=== PATIENT | female | born 1970 | race Caucasian/White ===

== ENCOUNTER 2019-10-28 15:27 | Outpatient (REF) | payer BC, SELFPAY ==
[2019-10-28 16:11] LABS: HCT 46.9 % (36.0-46.0); HGB 15.8 g/dL (12.0-15.5); Mean Corp. HGB Concentration 33.7 g/dL (32.0-36.0); Mean Corpuscular Hemoglobin 32.4 pg (27.0-33.0); Mean Corpuscular Volume 96.3 fL (80-95); Mean Platelet Volume 9.8 fL (8.0-11.0); Platelet Count 181 x1000/uL (130-400); RBC 4.87 m/cumm (4.00-5.20); RBC Distribution Width 12.2 % (11.7-14.6); White Blood Cell Count 5.88 k/cumm (4.4-10.8)
[2019-10-28 16:53] LABS: ALT 320 U/L (14-59); AST 154 U/L (15-37); Albumin 4.3 g/dL (3.4-5.0); Alkaline Phosphatase 74 U/L (46-116); Anion Gap 8.1 mmol/L (3-11); BUN 15 mg/dL (7-18); Bilirubin, Total 0.5 mg/dL (0.2-1.0); CO2 29.9 mmol/L (21.0-32.0); CREATININE 0.86 mg/dL (0.55-1.02); Chloride 100 mmol/L (98-107); Glucose 92 mg/dL (74-106); Potassium 4.2 mmol/L (3.5-5.1); Sodium 138 mmol/L (136-145); TSH (W/Ref FT4) 3.29 uIU/mL (0.36-3.74); Total Protein 8.6 g/dL (6.4-8.2)
== END 2019-10-28 15:47 ==
LOC: NCHCN 15:27
PROVIDERS: PCP Nurse Practitioner Family; Visit Provider Nurse Practitioner Family
DX: I10 Essential (primary) hypertension (principal)
CPT/HCPCS: 80053; 85027; 83036; 84443

== ENCOUNTER 2019-11-09 08:25 | Outpatient (CLI) | payer BC, SELFPAY ==
[2019-11-10 18:36] LABS: COVID-19 RT-PCR Result NEGATIVE (Negative)
== END 2019-11-09 08:45 ==
PROVIDERS: PCP Nurse Practitioner Family; Visit Provider Surgery
DX: Z11.59 Encounter for screening for other viral diseases (principal)
CPT/HCPCS: U0003

== ENCOUNTER 2019-11-12 06:04 | Day surgery (SDC) | payer BC, SELFPAY ==
[2019-11-12 06:22] VITALS: BP 129/82; PULSE 56; RESP 18; TEMP 36.6; O2SAT 97
[2019-11-12] MEDS: Lactated Ringers 1,000 ML 80 ML IV (06:44)
--- NOTE | 2019-11-12 07:18 | HPE_ITS ---
Date of service: 11/12/19 Time of Service: :18 Assessment and Plan Assessment and plan (1) Encounter for screening colonoscopy: Status: Acute Assessment and plan: I advised colonoscopy. The procedure was described including the risks of perforation with need for surgery or bleeding. Patient agrees to proceed. History of Present Illness Narrative: 48 y/o female with history of environmental allergies presents for her first screening colonoscopy screening. She denies any changes in her health since last seen. She reports that she had cancelled her original procedure date due to having a cold. She states that she was adopted and does not know her family history. She denies any changes in bowel habits including bloody or black tarry stools, abdominal pain, diarrhea or constipation. She denies constitutional symptoms. Denies use of marijuana or any other recreational or illegal drugs. 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 Non-alcoholic fatty liver disease Prediabetes Sleep disorder sleep apnea Surgical History Abdominal hysterectomy 2005 Biopsy, Soft Tissue (08/08/17) skin of right hand, dermatofibroma Tonsillectomy and adenoidectomy 1974 Social History Smoking/Tobacco Use Status: Never Alcohol Intake: current Alcohol Intake frequency: a few times a week Alcohol ty pe: beer and wine Drug use: Never Substance use type: does not use Do you feel safe at home: Yes Do you feel safe in your relationship?: Yes Meds Home Medications and Allergies Home Medications Medication Instructions Recorded Confirmed Type cetirizine [Zyrtec] 10 mg PO DAILY 08/01/17 11/12/19 History fluticasone propionate [Flonase 9.9 ml NS BID 08/01/17 11/12/19 History Allergy Relief] bisacodyl 5 mg tablet,delayed 5 mg PO ONCE #4 tab 06/04/19 11/12/19 Rx release polyethylene glycol 3350 17 238 g PO ONCE #238 gm 06/04/19 11/12/19 Rx gram/dose oral powder lisinopril 10 mg tablet 10 mg PO DAILY 10/29/19 11/12/19 History Allergies Allergy/AdvReac Type Severity Reaction Status Date / Time Penicillins Allergy Unknown Wheezing Verified 11/11/19 14:58 Exam Narrative Exam Narrative: Alert Lungs CTA Heart RRR Abdomen SNT Results Last Vital Signs Temp 97.9 F 11/12/19 06:22 Pulse 56 L 11/12/19 06:22 Resp 18 11/12/19 06:22 BP 129/82 11/12/19 06:22 Pulse Ox 97 11/12/19 06:22 COVID-19 Screening In the past 14 days, have you traveled outside of [place] or [place]?: NO
--- NOTE | 2019-11-12 07:29 | W.PM.DSUDISC ---
Discharge Plan Disposition Patient Disposition: HOME Condition: Good Discharge Details Reason For Visit: Colonoscopy Attending Provider: Darlene Nails Primary Care Provider: Adeel Del Valle Home Meds and New Rx's Prescriptions: Continued fluticasone propionate [Flonase Allergy Relief] 9.9 ML spray,suspension 9.9 ml NS BID RF: 0 Zyrtec 10 MG capsule 10 mg PO DAILY RF: 0 lisinopril 10 mg tablet 10 mg PO DAILY RF: 0 Discontinued polyethylene glycol 3350 17 gram/dose powder 238 g PO ONCE Qty: 238 RF: 0 bisacodyl [Dulcolax (bisacodyl)] 5 mg tablet,delayed release (DR/EC) 5 mg PO ONCE Qty: 4 RF: 0 Discharge Instructions Additional Instructions: Findings: A rectal polyp was removed. Follow up: My office will contact you with biopsy results. It is expected you will need a colonoscopy in 5 years. Please call if you develop: fevers >101.5 Nausea or Vomiting Abdominal pain that is not transient Bleeding DAY SURGERY UNIT POST COLONOSCOPY INSTRUCTIONS 1. Because there will be medication in your system for the next 24 hours, you may feel a little sleepy. Your coordination will be affected. Therefore: a. Do not drive or operate dangerous equipment for 24 hours. b. Do not drink alcohol beverages for 24 hours (not even beer). c. Plan to go home and rest for the day. 2. Generally there are no restrictions on your activity after a day or so has gone by, but you may feel a bit fatigued for a few days. 3 After you arrive home you may have a light meal and return to a normal diet as you can tolerate it without feeling sick to your stomach. 4. After surgery, you may feel pain or discomfort. This should be only transient, but if it persists please contact your doctor. 5. If there are any questions regarding the findings of your procedure, please feel free to contact your doctor. 6. If you are unable to contact your doctor with a problem, contact the hospital at [phone]. 7. Continue all your regular medications unless directed otherwise. I understand the above instructions and have no questions. Signature of Patient or Responsible Adult Escort Date/Time Name of Responsible Adult Escort Signature of Nurse Date/Time Activity:: Activity as Tolerated Diet:: As Tolerated Discharge Orders Discharge Orders: Discharge Order (Routine); Ordered 11/12/19 Ordered By: Darlene Nails DS: Diagnosis Discharge Diagnosis (1) Rectal polyp: Status: Acute (2) S/P colonoscopy with polypectomy: Status: Acute
--- NOTE | 2019-11-12 07:30 | W.COLOREPORT ---
Date of service: 11/12/19 Colonoscopy Report Date of procedure: 11/12/19 Pre-op diagnosis general: Screening Post-op diagnosis procedure note: other (Rectal polyp, mild diverticulosis) Procedure: Colonoscopy with polypectomy Surgeon: Darlene Nails Anesthesia proc note operative: MAC Disposition: same day Indications: This patient presents for her first screening colonoscopy. She is asymptomatic and has no known family history of colon cancer although she is adopted. Procedure Description: The patient was placed in the left Parker position. Propofol was titrated to sedation. Digital rectal examination revealed no abnormalities. The scope was advanced to the cecum without difficulty. The ileocecal valve and appendiceal orifice were clearly identified. The prep was good. The scope was slowly withdrawn over the course of greater than 6 minutes with no abnormalities seen in the ascending, transverse, descending, sigmoid colon with the exception of mild diverticulosis. A less than 1cm polyp was removed from the rectum with snare polypectomy. A hemostatic clip was applied as a precaution. The remainder of the rectum was normal including on retroflexed view. The patient tolerated the procedure well and was stable to recovery. It is anticipated a follow up colonoscopy will be needed in 5 years pending biopsy results.
--- NOTE | 2019-11-12 08:01 | BOWEL_PTH ---
PATIENT: Raquel Austin LOC: [facility] U#:[id number] AGE/SX: 49/F ROOM: RE11/12/[address]: Darlene Nails MD : [id number] BED: DIS: 11/12/2019 SPEC #: [id number] RECD: 11/12/19 11:50 STATUS: SANTOS REQ #: [id number] KIMBERLY: 11/12/19 08:[address]: Darlene Nails DEPT: Surgical Specimen RECD BY: Ashlee Cloud ENTERED: 11/12/19 11:51 SP TYPE: Bowel OTHR DR: Adeel Del Valle Tissues: 1 - BIOPSY BOWEL Procedures: GROSS AND MICRO LEVEL 4 Comments: [id number]
[2019-11-12 08:32] VITALS: BP 107/62; PULSE 48; RESP 16; TEMP 36.4; O2SAT 96
== END 2019-11-12 09:08 | disposition home or self-care (01) ==
PROVIDERS: PCP Nurse Practitioner Family; Visit Provider Surgery
PROC: 0DJD8ZZ Inspection of Lower Intestinal Tract, Via Natural or Artificial Opening Endoscopic (ICD-10-PCS; CPT 45378; principal; 2019-11-12 07:30)
DX: Z12.11 Encounter for screening for malignant neoplasm of colon (principal); D12.8 Benign neoplasm of rectum; K57.30 Diverticulosis of large intestine without perforation or abscess without bleeding
CPT/HCPCS: 45385; 88305; NC; J2001

== ENCOUNTER 2019-11-17 11:48 | Day surgery (SDC) | payer BC, SELFPAY ==
[2019-11-17] VITALS (9 sets, daily range): BP systolic 149–186; BP diastolic 88–108; PULSE 52–60; RESP 11–20; TEMP 36.3–36.8; O2SAT 95–99
--- NOTE | 2019-11-17 12:15 | W.PREOPHP ---
Date of service: 11/17/19 Assessment and Plan Assessment and plan (1) Arthritis of carpometacarpal (CMC) joint of right thumb: Status: Acute Assessment and plan: Trapezial arthroplasty right hand. Details of surgery were discussed with patient as well as risks and pertinent anatomy. All questions were answered. History of Present Illness History of Present Illness Chief Complaint: Right thumb pain Narrative: Raquel today for right thumb trapezial arthroplasty. She has been dealing with right thumb pain for many years, but recently has become more of an issue with her daily activities. She has had previous left thumb trapezial arthroplasty for similar symptoms of the left hand. She has tried anti-inflammatories which do help with her right thumb pain, but did not take it daily. She has also tried bracing which has not significantly helped her right hand at this point. But she is failed conservative treatment, and has done really well from the left trapezial arthroplasty, Dr. Hansen does offer a right of the thumb. She is anxious to proceed. Pertinent Surgical Information Raquel states that she had prediabetes with her last A1c done on 10/28/2019 which was 6.0. Patient denies history of hypertension, CVA, SD, angina, asthma, COPD, renal disorders, bleeding disorders, diabetes, immune or thyroid disorders. No complications from anesthesia. Review of Systems Constitutional Constitutional: Denies fever(s) ENT Ears, Nose, Mouth, and Throat: Denies dizziness and Denies sore throat Cardiovascular Cardiovascular: Denies chest pain, Denies palpitations and Denies dyspnea Respiratory Respiratory: Denies cough and Denies dyspnea Gastrointestinal Gastrointestinal: Denies abdominal pain, Denies melena, Denies hematochezia, Denies diarrhea, Denies nausea and Denies vomiting Genitourinary Genitourinary: Denies hematuria and Denies dysuria Neurologic Neurologic: Denies dizziness Endocrine Endocrine: Denies palpitations [facility] Medical History Allergic rhinitis Anxiety associated with depression Chronic fatigue Elevated LFTs 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 Non-alcoholic fatty liver disease Prediabetes Sleep disorder sleep apnea Surgical History Abdominal hysterectomy 2005 Biopsy, Soft Tissue (08/08/17) skin of right hand, dermatofibroma S/P colonoscopy with polypectomy (Acute) 11/12/19 Tonsillectomy and adenoidectomy 1975 Social History Smoking/Tobacco Use Status: Never Alcohol Intake: current Alcohol Intake frequency: a few times a week Alcohol type: beer and wine Drug use: Never Substance use type: does not use Current gender identity: female Do you feel safe at home: Yes Do you feel safe in your relationship?: Yes Meds Home Medications and Allergies Home Medications Medication Instructions Recorded Confirmed Type Zyrtec 10 mg PO DAILY 08/01/17 11/17/19 History fluticasone propionate [Flonase 9.9 ml NS BID 08/01/17 11/17/19 History Allergy Relief] lisinopril 10 mg tablet 10 mg PO DAILY 10/29/19 11/17/19 History Allergies Allergy/AdvReac Type Severity Reaction Status Date / Time Penicillins Allergy Unknown Wheezing Verified 11/11/19 14:58 Exam Const General: cooperative and no acute distress Orientation: alert and awake [facility] Head: normocephalic and atraumatic General nose exam: no nasal discharge Eyes Conjunctivae: conjunctivae normal Sclera: sclerae normal Resp Effort & Inspection: normal respiratory effort Auscultation: clear to auscultation bilaterally and no wheezes Cardio Rate: regular rate Rhythm: regular rhythm Heart Sounds: S1 normal, S2 normal and no murmurs GI Palpation: soft, no hepatosplenomegaly and nontender Auscultation: normal bowel sounds Results Last Vital Signs Temp 98.2 F 11/17/19 11:54 Pulse 52 L 11/17/19 11:54 Resp 17 11/17/19 11:54 BP 149/96 H 11/17/19 11:54 Pulse Ox 97 11/17/19 11:54
[2019-11-17] MEDS: Lactated Ringers 1,000 ML 80 ML IV (12:26)
--- NOTE | 2019-11-17 12:45 | DI.RAD_ITS ---
EXAM: XR HAND RT LIMITED CLINICAL HISTORY: ARTHRITIS CMC JOINT RIGHT THUMB. TECHNIQUE: 2D and realtime digital imaging was performed. COMPARISON: CR RIGHT WRIST COMPLETE from 11/19/2017 FINDINGS: Fluoroscopy was provided in the OR. A single hard copy image shows a needle projecting at the 1st C MC joint. Please see procedure note for details. Fluoro Time: 1 second RADIATION DOSE DELIVERED:
--- NOTE | 2019-11-17 13:25 | PDOC.DSDIS_ITS ---
Discharge Plan Disposition Patient Disposition: HOME Condition: Good Discharge Details Reason For Visit: Right Thumb Arthritis Attending Provider: Riley Hansen Primary Care Provider: Adeel Del Valle Home Meds and New Rx's Prescriptions: New acetaminophen 500 mg tablet 1,000 mg PO Q8H PRN (Reason: pain) Qty: 60 RF: 3 ibuprofen 600 mg tablet 600 mg PO TID PRNQty: 60 RF: 3 oxycodone 5 mg tablet 5 mg PO Q6H PRN PRNQty: 12 RF: 0 Continued fluticasone propionate [Flonase Allergy Relief] 9.9 ML spray,suspension 9.9 ml NS BID RF: 0 Zyrtec 10 MG capsule 10 mg PO DAILY RF: 0 lisinopril 10 mg tablet 10 mg PO DAILY RF: 0 Discharge Instructions Additional Instructions: Activity: You should keep the hand/thumb elevated as much as possible for the first few days. You may use the other fingers as tolerated but avoid trying to do too much too soon. You may perform light activities with the splint in place. Dressing/Cast: Your splint should stay in place at all times. Do NOT get it wet. You may loosen the ROGER wrap if you feel it is too tight and then rewrap more loosely. Medications: - You should take Tylenol and Ibuprofen for baseline pain control. - You have Oxycodone for breakthrough pain. - You may apply ice over the thumb. Follow-up: 10-14 days Referrals: Riley Hansen MD [ [facility] STAFF PHYSICIAN] - Equipment/Supplies: Splint Activity:: Elevate Remove Dressings/Wound Care:: Do Not Remove Shower/Bathe:: Cover Diet:: As Tolerated Discharge Orders Discharge Orders: Discharge Order (Routine); Ordered 11/17/19 Ordered By: Riley Hansen DS: Diagnosis Discharge Diagnosis (1) Arthritis of carpometacarpal (CMC) joint of right thumb: Status: Acute
[2019-11-17] MEDS: ceFAZolin 2 GM/50 ML BAG IVPB (13:29)
[2019-11-17] MEDS: fentaNYL 100 MCG/2 ML VIAL IVP ×2 (14:50→14:58)
[2019-11-17] MEDS: Acetaminophen 325 MG TAB 650 MG PO (15:16)
[2019-11-17] MEDS: oxyCODONE 5 MG TAB PO ×2 (15:17→16:33)
--- NOTE | 2019-11-18 06:48 | ROE_ITS ---
Date of service: 11/17/19 Time of Service: 14:48 Operative Note Operative Note DATE OF PROCEDURE: 11/18/19 PRE-OP DIAGNOSIS: Right Thumb CMC Arthritis POST-OP DIAGNOSIS: same PROCEDURE: Right trapezial resection arthroplasty with suture suspensionplasty SURGEON: Riley Hansen STEMMING MACHINE OPERATOR: Halle Lovelace ANESTHESIA: GETA ESTIMATED BLOOD LOSS: 5 PATHOLOGY: none sent TOURNIQUET TIME: 34 COMPLICATIONS: None Patient was transported to: PACU Patient's condition: stable Indications: Raquel is a 67 year old female who has had symptoms of thumb CMC arthritis with pain and decreased mobility. Nonoperative treatment options had been trialed. Given their failure, I offered operative intervention. She had a previous resection arthroplasty performed on the left side with good success about 10 years ago. I reviewed the technical details. I reviewed the risk of the procedure to include bleeding, infection, pain, stiffness, instability, subsidence, damage to neighboring arteries, damage to the superficial radial nerve, and weakness. Despite these risks, the patient elected to proceed. Findings: There is notable arthrosis between the trapezium and the first metacarpal. Procedure Description: Raquel was greeted in the preoperative holding area. Name and surgical site were confirmed. The history and physical was completed. The consent was reviewed the patient and signed. She was taken back to the operating room. The patient was placed and monitored anesthesia care. The right was then prepped with ChloraPrep and draped in a standard fashion after a nonsterile tourniquet was placed high up onto the arm. Prophylactic antibiotics in the form of cefazolin were administered. A timeout was performed for safe surgery. The surgical site was drawn on the skin overlying the dorsal radial border of the wrist. The planned surgical field was anesthetized with 0.25% bupivacaine with epinephrine. The limb was exsanguinated and the tourniquet was inflated where it stayed for 34 minutes. A 3 cm incision was made longitudinally over the radial wrist from the level of the radial styloid to just past the base of the first metacarpal. The skin was incised only. The deep tissue and subcutaneous fat was dissected with a tenotomy scissors trying to protect branches of the superficial radial nerve. Any branches that were identified were retracted out of the way. The first compartment extensor tendons were then identified. The interval between APL and EPB was identified. This interval was then opened. The deep branch of the radial artery was identified and released from its close approximation to the carpus using blunt dissection with tenotomy scissors. The base of the first metacarpal was palpated. A needle was placed into the joint between the first metacarpal and the trapezium. A single x-ray was used to confirm appropriate positioning. The capsule of the trapezium was then incised. The radial border of the bone was identified. Soft tissues around trapezium were dissected bluntly to allow relaxation of vital arterial structures traversing the trapezium. A [place] was placed into the joint space surrounding the trapezium, this was used as a joystick. Using a [place] blade the capsule was elevated off the trapezium in a subperiosteal fashion. Once it appeared to have all the capsular attachments released, the trapezium was then removed using a rongeur. To facilitate this removal, I split the trapezium in half with an osteotome. The wound was inspected to make sure all portions of the trapezium were removed. X-ray was used to confirm appropriate removal of all bony fragments. The wound was then thoroughly irrigated. Using a 2-0 FiberWire then performed a suture suspension plasty. This was done by incorporating capsule and attachments of the APL at the base of the first metacarpal and creating a sling connected to the deep flexor carpi radialis tendon seen traversing deep within the wound towards the second metacarpal. This was done twice to create a crossing network of 2-0 suture. This was then tied overlying the base of the first metacarpal making sure not to over tighten and hourglass the tendons. This provided support to the first metacarpal to prevent any excessive subsidence. The tourniquet was then released. There is no significant bleeding. The capsule of the trapezium was then reapproximated with a 2-0 Vicryl. The skin was closed with 4-0 Monocryl. The hand was dressed with 4 x 4's, web roll, thumb spica splint. All counts are correct. Patient was transferred back to PACU in a stable condition.
== END 2019-11-17 16:54 | disposition home or self-care (01) ==
PROVIDERS: PCP Nurse Practitioner Family; Visit Provider Student in an Organized Health Care Education/Training Program
PROC: (CPT 25447; principal; 2019-11-17 14:45)
DX: M18.11 Unilateral primary osteoarthritis of first carpometacarpal joint, right hand (principal); M79.641 Pain in right hand
CPT/HCPCS: 25447; 76000; NC; 73120; J0690; J1100; J1885; J2001; J2250; J2405; J3010; L3650

== ENCOUNTER 2019-11-25 11:23 | Outpatient (REF) | payer BC, SELFPAY ==
[2019-11-25 15:09] LABS: HCT 43.3 % (36.0-46.0); HGB 14.9 g/dL (12.0-15.5); Mean Corp. HGB Concentration 34.4 g/dL (32.0-36.0); Mean Corpuscular Hemoglobin 33.3 pg (27.0-33.0); Mean Corpuscular Volume 96.7 fL (80-95); Mean Platelet Volume 9.8 fL (8.0-11.0); Platelet Count 193 x1000/uL (130-400); RBC 4.48 m/cumm (4.00-5.20); RBC Distribution Width 12.3 % (11.7-14.6); White Blood Cell Count 5.96 k/cumm (4.4-10.8)
[2019-11-25 15:12] LABS: INR 0.9 (0.9-1.1); PTT Activated 22.1 sec (21.0-31.4); Prothrombin Time 9.4 sec (9.3-11.0)
[2019-11-25 15:20] LABS: Anion Gap 6.1 mmol/L (3-11); BUN 12 mg/dL (7-18); CO2 29.9 mmol/L (21.0-32.0); CREATININE 0.81 mg/dL (0.55-1.02); Calculated LDL 141 mg/dL (<100); Chloride 104 mmol/L (98-107); Cholesterol 211 mg/dL (<200); Glucose 121 mg/dL (74-106); HDL Cholesterol 39 mg/dL (40-60); Potassium 3.9 mmol/L (3.5-5.1); Sodium 140 mmol/L (136-145); Triglyceride 159 mg/dL (<150)
[2019-11-25 15:21] LABS: Troponin I < 0.05 ng/mL (<0.06)
[2019-11-25 15:50] LABS: D-Dimer 422 ng/mlFEU (<500)
== END 2019-11-25 11:43 ==
LOC: NCHCN 11:23
PROVIDERS: PCP Nurse Practitioner Family; Visit Provider Nurse Practitioner Family
DX: Z00.00 Encounter for general adult medical examination without abnormal findings (principal); R79.89 Other specified abnormal findings of blood chemistry; K76.0 Fatty (change of) liver, not elsewhere classified; R07.89 Other chest pain; I10 Essential (primary) hypertension; R53.83 Other fatigue
CPT/HCPCS: 80048; 80061; 85027; 84484; 85379; 85610; 85730

== ENCOUNTER 2020-03-03 09:19 | Outpatient (REF) | payer BC, SELFPAY ==
[2020-03-03 21:05] LABS: COMMENT (LAB VIEW ONLY) 22.73 mg/dL; Microalb ug/mg Crea 14.1 ug/mg Cr
[2020-03-03 21:07] LABS: COMMENT (LAB VIEW ONLY) 23.26 mg/dL; PROTEIN < 6.0 mg/dL
== END 2020-03-03 09:39 ==
LOC: NCHCN 09:19
PROVIDERS: PCP Nurse Practitioner Family; Visit Provider Nurse Practitioner Family
DX: I10 Essential (primary) hypertension (principal); R73.03 Prediabetes
CPT/HCPCS: 82043; 82565; 82570; 84156

== ENCOUNTER 2020-03-07 00:40 | Outpatient (CLI) | payer BC, SELFPAY ==
--- NOTE | 2020-03-07 12:45 | DI.MAMMO_ITS ---
EXAM: MAMMO SCREENING CLINICAL HISTORY: SCREENING,Z12.39 TECHNIQUE: Mammograms were interpreted according to the usual protocol including computer analysis w LATTO CAD system, tomosynthesis and C-view imaging. COMPARISON: FINDINGS: The breasts are of moderate density with fairly symmetrical distribution of fibroglandular tissue. N o dominant mass or clumped microcalcification is identified in either breast. The current examinatio n is compared with previous examination of July 2017 and there is question of increased prominenc e of a focal area of asymmetric density or architectural distortion projected in the central superior portion of the right breast on MLO view only. Additional mammographic views of this area are reques edvin to include MLO spot compression view of right breast. IMPRESSION: Additional mammographic views of the right breast requested as described above. Breast ultrasound ma y be indicated as well depending on the results of the additional mammographic views. BI-RADS Category 0 - Assessment Incomplete: Need additional imaging evaluation Breast Density - Category B - Scattered areas of fibroglandular density
== END 2020-03-07 01:00 ==
PROVIDERS: PCP Nurse Practitioner Family; Visit Provider Nurse Practitioner Family
DX: Z12.31 Encounter for screening mammogram for malignant neoplasm of breast (principal); R92.8 Other abnormal and inconclusive findings on diagnostic imaging of breast; R92.2 Inconclusive mammogram
CPT/HCPCS: 77063; 77067

== ENCOUNTER 2020-03-14 01:17 | Outpatient (CLI) | payer BC, SELFPAY ==
--- NOTE | 2020-03-14 | DI.MAMMO_ITS ---
EXAM: MG MAMMO SCREEN CALL BACK UNI and U/S breast RT limited CLINICAL HISTORY: F/U MAMMO,? INCREASED PROMINENCE ASYMMETRIC DENSITY RT BREAST MLO VIEW. TECHNIQUE: Craniocaudal and mediolateral oblique Full Field Digital Mammography views of the right b reast with Computer Aided Diagnosis followed by Tomosynthesis and right breast ultrasound. COMPARISON: Prior examinations available for comparison. FINDINGS: Mammography/Tomosynthesis: Masses/Architectural Distortion: None seen. Microcalcifictions: No suspicious pleomorphic-type are seen. Skin Thickening/Nipple Retraction: None. Right breast US: Echotexture: Normal appearance of the glandular tissue. Shadowing: No suspicious foci. Cyst: None. Solid lesions: None seen. Ductal dilation: None. IMPRESSION: 1. No evidence of malignancy is noted. 2. Follow-up mammogram in 6 months is recommended for re-evaluation. 3. The findings were discussed with the patient on the date of the examination. BI-RADS Category 3 - 6 month - Probably Benign Finding: Recommend follow-up mammography in 6 months Breast Density - Category B - Scattered areas of fibroglandular density A negative radiographic report should not delay biopsy if a dominant or clinically suspicious mass is present. Up to ten percent of cancers are not identified on mammography. A negative report may reinforce clinical impression. Adenosis and dense breasts may obscure an underlying neoplasm. False positive reports average 6 to 10%. Patient will receive a letter notifying them of these results.
== END 2020-03-14 01:37 ==
PROVIDERS: PCP Nurse Practitioner Family; Visit Provider Nurse Practitioner Family
DX: Z12.39 Encounter for other screening for malignant neoplasm of breast (principal); R92.8 Other abnormal and inconclusive findings on diagnostic imaging of breast
CPT/HCPCS: 76642; 77063; 77067

== ENCOUNTER 2020-03-17 09:52 | Outpatient (REF) | payer BC, SELFPAY ==
[2020-03-17 20:17] LABS: ALT 232 U/L (14-59); AST 108 U/L (15-37); Albumin 3.9 g/dL (3.4-5.0); Alkaline Phosphatase 74 U/L (46-116); BUN 18 mg/dL (7-18); Bilirubin, Total 0.4 mg/dL (0.2-1.0); CREATININE 0.97 mg/dL (0.55-1.02); Calcium 9.2 mg/dL (8.5-10.1); Chloride 99 mmol/L (98-107); Glucose 171 mg/dL (74-106); Magnesium 2.3 mg/dL (1.8-2.4); Potassium 3.5 mmol/L (3.5-5.1); Sodium 136 mmol/L (136-145); Total Protein 7.9 g/dL (6.4-8.2)
== END 2020-03-17 10:12 ==
LOC: NCHCN 09:52
PROVIDERS: PCP Nurse Practitioner Family; Visit Provider Nurse Practitioner Family
DX: I10 Essential (primary) hypertension (principal)
CPT/HCPCS: 80053; 83735

== ENCOUNTER 2020-05-01 15:19 | Outpatient (REF) | payer BC, SELFPAY ==
[2020-05-04 19:15] LABS: Patient Race White; SARS-CoV-2 Specimen Source Nasal
[2020-05-04 21:27] LABS: SARS-CoV-2 RNA Detected (Undetected)
== END 2020-05-01 15:39 ==
LOC: NCHCN 15:19
PROVIDERS: PCP Nurse Practitioner Family; Visit Provider Nurse Practitioner Family
DX: R51.9 Headache, unspecified (principal)
CPT/HCPCS: U0003

== ENCOUNTER 2020-05-13 14:25 | Emergency (ER) | payer BC, SELFPAY ==
[2020-05-13] VITALS (11 sets, daily range): BP systolic 105–173; BP diastolic 66–106; PULSE 53–72; RESP 10–27; TEMP 36.3; O2SAT 93–100
--- NOTE | 2020-05-13 14:30 | RT.EKG_ITS ---
APPROVED REPORT Exam: Resting ECG Patient Location: E HR:60 bpm ECG Measurements Heart Rate 60 AXIS VA 154 P 30 QRSd 106 QRS -23 QT 406 T 45 QTc 405 Conclusion Sinus rhythm. No st elevation
--- NOTE | 2020-05-13 15:00 | DI.RAD_ITS ---
EXAM: XR PORTABLE CHEST AP CLINICAL HISTORY: pain/sob, +covid TECHNIQUE: 2D digital imaging was performed. COMPARISON: No exams were available for comparison FINDINGS: LUNGS: Clear. No pleural abnormality seen. HEART: Normal. MEDIASTINUM: Normal. Bones: Unremarkable IMPRESSION: No acute pulmonary findings. DATA REPOSITORY: RADIATION DOSE DELIVERED:
--- NOTE | 2020-05-13 15:17 | W.ED.GENAD ---
Discharge Plan Disposition Patient Disposition: HOME Condition: Stable Discharge Details Clinical Impression: Rash, Chest pain Primary Care Provider: Adeel Del Valle ED Provider: Eder Mascorro Home Meds and New Rx's Prescriptions: Continued chlorthalidone 25 mg tablet 25 mg PO DAILY RF: 0 lisinopril 10 mg tablet 20 mg PO DAILY RF: 0 acetaminophen 500 mg tablet 1,000 mg PO Q8H PRN (Reason: pain) Qty: 60 RF: 3 Contrave 8-90 mg tablet extended release 8 tab PO BID RF: 0 Discharge Instructions Instructions: Chest Pain (ED), Acute Rash (ED) Additional Instructions: Blood tests today included cardiac enzymes which were normal. Your liver function tests were elevated but improved from prior. Your creatinine was slightly elevated from baseline. This is a measure of kidney function and should be repeated. Please contact your primary care physician to arrange follow-up. Call on Friday. Be sure to discuss lab results. Ideally you should have an outpatient cardiac stress test performed as soon as possible. If rash persist, please follow-up with [facility]. Return to the ER for any worsening or new concerning symptoms. Referrals: Adeel Del Valle, FACSIMILE MACHINE OPERATOR [Primary Care Provider] - Discharge Data Discharge Date/Time-TO BE ENTERED AT DEPARTURE: 05/13/20 19:00 Medical Decision Making <ELIN Pal - Last Filed: 05/14/20 08:10> 49-year-old female, history of hypertension, positive Covid test on May 01, presents for irritating skin rash that began on her feet, now on her legs and arms. The rash is scant, diffuse, erythematous, blanchable, slightly papular in nature. No petechiae, no tenderness, no skin weeping. There are a couple areas of excoriation. She states that she took [id number] Benadryl and did a soak to the areas with the rash and her symptoms are far improved however the rash has not gone away completely. Subsequently she reports that since her diagnosis of Covid she has had some left-sided chest pain, shortness of breath, pain going to her left shoulder that has been intermittent in nature. Denies any of that this very moment. Clinically I see no obvious signs of cellulitis, systemic reaction, etc. Very well could be a viral exanthem versus some sort of dermatitis. I believe treating the symptomatically is perfectly reasonable. Given her diagnosis of Covid, chest pain, shortness of breath, I do believe further evaluation and work-up of chest pain is indicated. She is agreeable to having an IV established, EKG, chest x-ray, laboratory values including troponin now, D-dimer, and repeat troponin in 3 hours. Blood pressure trending downward to 106/74. Pulse now 57. Laboratory values reveal a normal white count of 7.66. Blood sample hemolyzed, no other results at the time of signout. At time of signout to Dr. Mascorro, awaiting laboratory redraw for hemolyzed sample. Patient is agreeable to awaiting a 3-hour troponin. Medical Records Medical records reviewed: Yes I reviewed the patient's medical records. Imaging Data Radiologic Study: Attestation: I personally reviewed and interpreted this imaging study as follows: Imaging: X-Ray My impression: Chest x-ray read by me as negative, awaiting official radiology report. Lab Data Lab results reviewed: Yes I reviewed the patient's lab results. Lab results narrative: Laboratory Tests Range/Units 05/13/20 15:00 WBC (4.4-10.8) 10^3/uL 7.66 RBC (3.93-5.22) 10^6/uL 4.70 Hgb (11.2-15.7) g/dL 15.4 Hct (36.0-46.0) % 45.9 MCV (80-95) fL 97.7 H MCH (27.0-33.0) pg 32.8 MCHC (32.0-36.0) % 33.6 RDW (11.7-14.6) % 12.1 Plt Count (130-400) 10^3/uL 214 MPV (8.0-11.0) fL 9.3 Immature Gran % 0.3 Neutrophils % 56.5 Lymphocytes % 29.5 Monocytes % 8.6 Eosinophils % 4.6 Basophils % 0.5 Nucleated RBC % % 0 Absolute Neutrophils (1.2-6.7) 10^3/uL 4.33 Absolute Lymphocytes (1.2-3.4) 10^3/uL 2.26 Absolute Monocytes (0.1-0.8) 10^3/uL 0.66 Absolute Eosinophils (0.0-0.7) 10^3/uL 0.35 Absolute Basophils (0.0-0.2) 10^3/uL 0.04 ECG Data Attestation: I personally reviewed and interpreted this ECG (s) as follows: Interpretation: Please see official report by Dr. Lugo. Sinus rhythm, ventricular rate 60. No STEMI. <Eder Mascorro MD - Last Filed: 05/13/20 19:54> Care signed out by ELIN Leon with plan to follow-up on labs including D-dimer and troponin. Initial labs reviewed and D-dimer negative. Initial troponin negative. Plan as previously determined for antihistamine to treat rash. I will refer her to primary care and dermatology should rash worsen. I recommended she followup with PCP for stress test. Usual customary discharge instructions were provided and she was encouraged to return for any worsening or new concerning symptoms. HPI <ELIN Pal - Last Filed: 05/14/20 08:10> General Mode of arrival: ambulatory. Date/Time Provider Initiated Documentation: 05/13/20 14:41. Limitations to Documentation: no limitations. Information obtained by: patient. HPI Narrative: This is a 49-year-old female who reports history of hypertension, positive Covid test on May 01. She traveled to [place] for approximately 1 week, returned on April 24, subsequently developed URI-like symptoms and then tested positive for Covid. She states that she has been quarantining since that time. Overall she has more energy and is feeling slightly better than she did from her initial diagnosis. She states that over the past few days she has noticed a irritating, slightly itching, rash on the top of her bilateral feet that has spread up to her legs and onto her arms. She soaks the rash and took Benadryl which seemed to have helped with the irritating symptoms. She denies any difficulty speaking, swallowing, lip or tongue swelling. She denies any obvious environmental exposures. No one at home has similar symptoms. She denies headache, fever, neck pain, back pain, abdominal pain, nausea, vomiting, change in bowel or bladder function. She states that since her diagnosis of Covid she has had some intermittent chest pain, shortness of breath, and at times the pain does radiate to her left shoulder. She denies any shortness of breath or pain currently. Related Data Home Medications Medication Instructions Recorded Confirmed acetaminophen 1,000 mg PO Q8H PRN #60 tab 11/17/19 05/13/20 lisinopril 10 mg tablet 20 mg PO DAILY tab 12/02/19 05/13/20 chlorthalidone 25 mg tablet 25 mg PO DAILY 03/09/20 05/13/20 Contrave 8 tab PO BID 05/13/20 05/13/20 Previous Rx's Medication Instructions Recorded acetaminophen 1,000 mg PO Q8H PRN #60 tab 11/17/19 Allergies Allergy/AdvReac Type Severity Reaction Status Date / Time Penicillins Allergy Unknown Wheezing Verified 05/13/20 14:42 General Stated Complaint: Chest Pain BAUTISTA: 2 Review of Systems <ELIN Pal - Last Filed: 05/14/20 08:10> Constitutional Constitutional: Denies fatigue, Denies fever(s) and Denies headache(s) ENT Ears, Nose, Mouth, and Throat: Denies headache(s), Denies lip swelling, Denies neck pain, Denies sore throat, Denies throat swelling and Denies tongue swelling Cardiovascular Cardiovascular: Reports chest pain and Reports dyspnea Respiratory Respiratory: Denies cough, Reports dyspnea and Denies wheezing Gastrointestinal Gastrointestinal: Denies abdominal pain, Denies nausea and Denies vomiting Genitourinary Genitourinary: Denies dysuria Musculoskeletal Musculoskeletal: Denies back pain, Denies neck pain, Denies numbness and Denies tingling Integumentary/Breasts Skin/Breast: Reports rash Neurologic Neurologic: Denies headache(s), Denies numbness and Denies tingling Endocrine Endocrine: Denies fatigue Allergic/Immunologic Allergic/Immunologic: Denies urticaria, Denies lip swelling, Denies throat swelling, Denies tongue swelling and Denies wheezing PFSH <ELIN Pal - Last Filed: 05/14/20 08:10> Medical History Allergic rhinitis Anxiety associated with depression Chronic fatigue Elevated LFTs 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 Non-alcoholic fatty liver disease Prediabetes Sleep disorder sleep apnea Surgical History Abdominal hysterectomy 2005 Arthritis of carpometacarpal (CMC) joint of right thumb Status post trapezial arthroplasty: 11/17/2019 Biopsy, Soft Tissue (08/08/17) skin of right hand, dermatofibroma S/P colonoscopy with polypectomy 11/12/19 Tonsillectomy and adenoidectomy 1975 Social History Smoking/Tobacco Use Status: Never Smoking risk assessment performed?: Yes Alcohol Intake: former Drug use: Never Substance use type: does not use Current gender identity: female Do you feel safe at home: Yes Do you feel safe in your relationship?: Yes Exam <ELIN Pal - Last Filed: 05/14/20 08:10> Const General: cooperative, healthy appearing, comfortable and no acute distress Orientation: alert, awake and oriented x3 HENMT Head: normal to inspection, normocephalic and atraumatic General nose exam: external nose normal Face and sinus: normal facial exam Mouth: moist mucous membranes Throat: posterior oropharynx normal Eyes General: appearance normal, both eyes and all related structures Alignment and Position: alignment normal Periorbital: periorbital findings normal Eyelids: eyelids normal Conjunctivae: conjunctivae normal Sclera: sclerae normal Cornea: corneas normal Pupils: PERRL EOM: EOM intact bilaterally Direct ophthalmoscopy: normal light reflex Neck Neck: normal visual inspection, full ROM, no lymphadenopathy, no meningeal signs, trachea midline, supple and nontender Chest Chest: normal inspection of the chest Resp Effort & Inspection: normal respiratory effort and able to speak in complete sentences Auscultation: clear to auscultation bilaterally Cardio Rate: regular rate Rhythm: regular rhythm GI Inspection: normal to inspection Palpation: soft and nontender Back/Spine/Pelvis Back: No back tenderness Skin Rashes: rashes noted maculopapular rash bilateral arm Neuro General: patient alert, patient awake, moves all extremities and no focal motor deficits Cognition: normal cognition Speech: speech normal Gait: normal gait Motor: muscle tone normal throughout Sensory Exam: no sensory deficits noted Extrem General: normal to inspection, full ROM, capillary refill normal, no pedal edema and no calf tenderness Psych Appearance: grossly normal Mental Status: mental status grossly normal Course <ELIN Pal - Last Filed: 05/14/20 08:10> Vital Signs Vital signs: Vital Signs Temperature 36.3 C L 05/13/20 14:32 Pulse 72 05/13/20 14:32 Respiratory Rate 16 05/13/20 14:32 Blood Pressure 173/106 H 05/13/20 14:32 Pulse Oximetry 100 05/13/20 14:32 Temperature 36.3 C L 05/13/20 14:32 Temperature Source Tympanic 05/13/20 14:32 Pulse 72 05/13/20 14:32 Respiratory Rate 16 05/13/20 14:50 Respiratory Effort Non-Labored 05/13/20 14:50 Respiratory Depth Normal 05/13/20 14:50 Respiratory Pattern Normal 05/13/20 14:50 Blood Pressure 173/106 H 05/13/20 14:32 Blood Pressure Position Supine 05/13/20 14:32 Pulse Oximetry 100 05/13/20 14:32 Oxygen Delivery Method Room Air 05/13/20 14:32 Oxygen Flow Rate 0 05/13/20 14:32 Pain Level 2 05/13/20 14:32 Sign Out <ELIN Pal - Last Filed: 05/14/20 08:10> Sign Out Data: Sign Out Comment: At time of signout lab is redrawn due to hemolyzed samples. All that has returned is the complete blood count, EKG, chest x-ray. Patient presents for rash to her extremities however she has been having what she describes as chest pain or pressure, shortness of breath, radiates to her left shoulder. Positive Covid test on May 01. Last updated by Margarito Leon PA at 05/13/20 15:55
[2020-05-13 15:35] LABS: Abs Immature Grans 0.02 10^3/uL (0.0-0.06); Absolute Basophil Count 0.04 10^3/uL (0.0-0.2); Absolute Eosinophil Count 0.35 10^3/uL (0.0-0.7); Absolute Lymphocyte Count 2.26 10^3/uL (1.2-3.4); Absolute Monocyte Count 0.66 10^3/uL (0.1-0.8); Absolute Neutrophil Count 4.33 10^3/uL (1.2-6.7); Basophils % 0.5; Eosinophils % 4.6; HCT 45.9 % (36.0-46.0); HGB 15.4 g/dL (11.2-15.7); Immature Grans % 0.3; Lymphocytes % 29.5; MCH 32.8 pg (27.0-33.0); MCHC 33.6 % (32.0-36.0); MCV 97.7 fL (80-95); MPV 9.3 fL (8.0-11.0); Monocytes % 8.6; Neutrophils % 56.5; Nucleated RBC 0 %; Platelet Count 214 10^3/uL (130-400); RDW 12.1 % (11.7-14.6); RDW-SD 43.8 fL; WBC 7.66 10^3/uL (4.4-10.8)
[2020-05-13 15:50] LABS: PTT Activated 25.8 sec (21.0-27.5); Prothrombin Time 10.3 sec (9.3-11.0)
--- NOTE | 2020-05-13 15:58 | DI.VRAD_ITS ---
PROCEDURE INFORMATION: Exam: XR Chest, 1 View Exam date and time: 05/13/2020 3:42 PM Age: 49 years old Clinical indication: Chest pain and other: Pain/sob +covid; Type not specified TECHNIQUE: Imaging protocol: XR of the chest Views: 1 view. Other technique: Portable exam. COMPARISON: No relevant prior studies available. FINDINGS: Lungs: Unremarkable. No consolidation. Pleural space: Unremarkable. No pleural effusion. No pneumothorax. Heart/Mediastinum: Unremarkable. No cardiomegaly. Bones/joints: Unremarkable. IMPRESSION: No evidence for acute abnormality in the chest. Dictated and Authenticated by: Elba Parker MD. Ordering:CLARY Pimentel MD
[2020-05-13 16:23] LABS: ALT 149 U/L (14-59); AST 67 U/L (15-37); Albumin 3.9 g/dL (3.4-5.0); Alkaline Phosphatase 55 U/L (46-116); BUN 16 mg/dL (7-18); Bilirubin, Total 0.4 mg/dL (0.2-1.0); CREATININE 1.13 mg/dL (0.55-1.02); Chloride 98 mmol/L (98-107); Estimated GFR 50.76 (mL/min/1.73m2); Glucose 111 mg/dL (74-106); Magnesium 2.1 mg/dL (1.8-2.4); NT-proBNP 24 pg/mL (<300); Potassium 3.9 mmol/L (3.5-5.1); Sodium 133 mmol/L (136-145); Total Protein 8.2 g/dL (6.4-8.2)
[2020-05-13 16:26] LABS: Troponin I < 0.05 ng/mL (<0.06)
[2020-05-13 16:27] LABS: Calcium 9.1 mg/dL (8.5-10.1)
[2020-05-13 17:35] LABS: D-Dimer 395 ng/mlFEU (<500)
--- NOTE | 2020-05-13 18:07 | NUR.NOTE ---
Nursing Note: Patient reports no discomfort. Provided lab results to patient, water. No other needs at this time, awaiting repeat Troponin level.
[2020-05-13 18:27] LABS: Troponin I < 0.05 ng/mL (<0.06)
== END 2020-05-13 19:00 | disposition home or self-care (01) ==
PROVIDERS: Physician Assistant; Emergency Provider Student in an Organized Health Care Education/Training Program; PCP Nurse Practitioner Family
DX: U07.1 COVID-19 (principal); R07.89 Other chest pain; R21 Rash and other nonspecific skin eruption; R06.02 Shortness of breath; I10 Essential (primary) hypertension
CPT/HCPCS: 80053; 93005; 71045; 83735; 83880; 84484; 85025; 85379; 85610; 85730; 93010

== ENCOUNTER 2020-10-05 01:41 | Outpatient (CLI) | payer BC, SELFPAY ==
--- NOTE | 2020-10-05 | DI.MAMMO_ITS ---
EXAM: MG MAMMO DIAGNOSTIC UNI CLINICAL HISTORY: F/U ABNL MAMMO, 6 MO F/U,R92.8. TECHNIQUE: Unilateral spot mammographic images were obtained with 3D [employer] and util izing computer aided detection (CAD). COMPARISON: Prior mammograms dating back to 2007, the most recent being February 2020. Breast ultr asound February 2020 was reviewed FINDINGS: Previously described area of possibly some asymmetry appears less concerning on the present study. B enign-appearing lymph node upper outer quadrant of the right breast is unchanged. No new spiculated masses nor malignant-appearing microcalcification groups. No new architectural distortion or skin thickening-traction IMPRESSION: No radiographic evidence of malignancy in the right breast. Appropriate follow-up is keep this patie nt yearly mammogram schedule, this implying the next bilateral mammogram would be in March 2021, wi th earlier imaging if a self detected breast changes noted. BI-RADS Category 2 - Benign Findings Breast Density - Category B - Scattered areas of fibroglandular density Breast density Category C or D implies that the patient has dense breast tissue. Dense breast tissue can make it harder to find cancer on a mammogram. Dense breast tissue is also associated with an incr eased risk of breast cancer. This information about the result of the mammogram report was provided to the patient to raise their awareness. Use this report when you speak with the patient about their risks for breast cancer, which includes their family history. At that time, you may recommend additional screening tests (Ultrasoun d or MRI) as these tests may add significant information. A negative radiographic report should not delay biopsy if a dominant or clinically suspicious mass is present. Up to ten percent of cancers are not identified on mammography. A negative report may reinforce clinical impression. Adenosis and dense breasts may obscure an underlying neoplasm. False positive reports average 6 to 10%. Patient will receive a letter notifying them of these results.
== END 2020-10-05 02:01 ==
PROVIDERS: PCP Nurse Practitioner Family; Visit Provider Nurse Practitioner Family
DX: Z12.31 Encounter for screening mammogram for malignant neoplasm of breast (principal); R92.8 Other abnormal and inconclusive findings on diagnostic imaging of breast; N64.59 Other signs and symptoms in breast
CPT/HCPCS: 77061; 77065; G0279

== ENCOUNTER 2021-08-17 02:04 | Outpatient (CLI) | payer BC, SELFPAY ==
--- NOTE | 2021-08-17 09:12 | DI.RAD_ITS ---
Exam(s) XR SHOULDER RT COMPLETE 2+V EXAM: XR SHOULDER RT COMPLETE 2+V CLINICAL HISTORY: PAIN RT SHOULDER M25.511. TECHNIQUE: 2D digital imaging was performed. COMPARISON: CR RIGHT SHOULDER COMPLETE from 11/19/2017 FINDINGS: There is no evidence of fracture nor dislocation. No abnormal soft tissue calcifications. No joint space narrowing. No osteophytes. Bone density normal. No osseous lesions. Ipsilateral clavicle un remarkable in IMPRESSION: No significant radiograph findings in the right shoulder. No significant radiographic change compare d to October 2017. If clinically indicated follow-up MRI can be performed DATA REPOSITORY: RADIATION DOSE DELIVERED:
== END 2021-08-17 02:24 ==
PROVIDERS: PCP Nurse Practitioner Family; Visit Provider Naturopath
DX: M25.511 Pain in right shoulder (principal)
CPT/HCPCS: 73030

== ENCOUNTER 2021-08-22 00:46 | Outpatient (CLI) | payer BC, SELFPAY ==
--- NOTE | 2021-08-22 08:00 | DI.MAMMO_ITS ---
Exam(s) MAMMO SCREENING EXAM: MAMMO SCREENING CLINICAL HISTORY: SCREENING TECHNIQUE: Mammograms were interpreted according to the usual protocol including computer analysis w [employer] CAD system, tomosynthesis and C-view imaging. COMPARISON: FINDINGS: The breasts are of moderate density with fairly symmetrical distribution of fibroglandular tissue. N o dominant mass or clumped microcalcification is identified in either breast. The current examinatio n is compared with previous examinations including February 2020 and there has been no gross interva l change in appearance in comparison with the prior studies. IMPRESSION: No specific evidence of malignancy at this time. Routine screening examinations are suggested at yea rly intervals in this age group according to the ACS ACR guidelines. BI-RADS Category 1 - Negative Breast Density - Category B - Scattered areas of fibroglandular density
== END 2021-08-22 01:06 ==
PROVIDERS: PCP Nurse Practitioner Family; Visit Provider Naturopath
DX: Z12.31 Encounter for screening mammogram for malignant neoplasm of breast (principal)
CPT/HCPCS: 77063; 77067

== ENCOUNTER 2021-09-19 16:08 | Outpatient (REF) | payer BC, SELFPAY ==
[2021-09-21 12:06] LABS: COVID-19 RT-PCR UVMMC Result Negative (Negative)
== END 2021-09-19 16:09 | disposition home or self-care (01) ==
LOC: LBN 16:08
PROVIDERS: PCP Nurse Practitioner Family; Visit Provider Physician Assistant Medical
DX: Z20.822 Contact with and (suspected) exposure to COVID-19 (principal); R09.89 Other specified symptoms and signs involving the circulatory and respiratory systems
CPT/HCPCS: U0003

== ENCOUNTER → 2021-12-10 01:37 | Outpatient (CLI) | payer BC, SELFPAY ==
--- NOTE | 2021-12-10 07:00 | DI.MRI_ITS ---
Exam(s) MR UPPER JOINT RT WO EXAM: MR UPPER JOINT RT WO CLINICAL HISTORY: Persistent pain, ARTHRITIS RT AC JOINT, BICEPS TENDINITIS, BURSITIS. TECHNIQUE: Multiplanar multisequence MRI was performed. COMPARISON: CR XR SHOULDER RT COMPLETE 2+V from 08/17/2021 FINDINGS: BONES: There is no fracture or contusion pattern. JOINTS: Moderately severe degenerative changes are seen at the acromioclavicular joint. The glenohum eral joint is normal. TENDONS: Supraspinatus: There is a full-thickness tear of the supraspinatus tendon anteriorly at its insertion site. There is a gap of approximately 1 cm. Infraspinatus: Unremarkable. Subscapularis: There is tendinosis of the subscapularis tendon. Teres [place]: Unremarkable. Biceps and [place]: Unremarkable. MUSCLES: Unremarkable. GLENOID LABRUM: Unremarkable on this noncontrast examination. SOFT TISSUES: Unremarkable. LIGAMENTS: Unremarkable. OTHER: There is a small amount of fluid in the subacromial subdeltoid bursa. IMPRESSION: 1. Full-thickness tear of the supraspinatus tendon anteriorly at its insertion site. 2. Subscapularis tendinosis. 3. Moderately severe degenerative changes of the acromioclavicular joint. 4. Mild subacromial subdeltoid bursitis. DATA REPOSITORY:
== END ==
PROVIDERS: PCP Naturopath; Visit Provider Student in an Organized Health Care Education/Training Program
DX: M25.511 Pain in right shoulder; M19.011 Primary osteoarthritis, right shoulder; M75.101 Unspecified rotator cuff tear or rupture of right shoulder, not specified as traumatic; M75.81 Other shoulder lesions, right shoulder; M75.21 Bicipital tendinitis, right shoulder; M75.51 Bursitis of right shoulder
CPT/HCPCS: 73221

== ENCOUNTER 2022-02-05 01:26 | Outpatient (CLI) | payer BC, SELFPAY ==
[2022-02-05 12:26] LABS: Source Nasal/Nares
[2022-02-05 14:35] LABS: COVID-19 PCR Negative (Negative)
== END 2022-02-05 01:27 | disposition home or self-care (01) ==
PROVIDERS: PCP Naturopath; Visit Provider Student in an Organized Health Care Education/Training Program
DX: Z20.822 Contact with and (suspected) exposure to COVID-19 (principal); Z01.818 Encounter for other preprocedural examination
CPT/HCPCS: 87635

== ENCOUNTER 2022-02-07 05:49 | Day surgery (SDC) | payer BC, SELFPAY ==
[2022-02-07] VITALS (9 sets, daily range): BP systolic 89–124; BP diastolic 54–79; PULSE 48–52; RESP 14–21; TEMP 35.8–36.5; O2SAT 93–100; BMI 32.9
--- NOTE | 2022-02-07 06:37 | W.ANESPRE ---
General Info Date of Service Date Performed: 02/07/22 Height: 5 ft 6 in Weight: 92.5 kg Body Mass Index (BMI): 32.9 Surgical Procedure: Operation Date: 02/07/22 07:40 Proposed Procedure Side Surgeon p Shoulder Rotator Cuff Arthroscopic w/Extensive Debridement, Biceps Tenodesis, Subacromial Decompression, Distal Clavicle Excision Right Baldomero Joiner MD Meds Allergies and Home Medications Allergies Allergy/AdvReac Type Severity Reaction Status Date / Time Penicillins Allergy Unknown Wheezing Verified 02/07/22 06:19 Home Medication Medication Instructions Recorded lisinopril 10 mg tablet 20 mg PO DAILY 12/02/19 chlorthalidone 25 mg tablet 25 mg PO DAILY 03/09/20 naltrexone 8 mg-bupropion 90 mg 8 tab PO BID 05/13/20 tablet,extended release (Contrave) naproxen 500 mg tablet 500 mg PO BID 11/20/21 Current Visit Medications: Current Medications Generic Name Dose Route Start Last Admin Trade Name Freq PRN Reason Stop Dose Admin Ringer's Solution 1,000 mls @ 30 mls/hr 02/07/22 06:00 IV 03/08/22 23:59 INFUSION JERROD Cefazolin Sodium/Dextrose 2 gm in 50 mls @ 100 mls/hr 02/07/22 06:00 Ancef Duplex IVPB 02/07/22 16:00 PREOP JERROD IV Miscellaneous Supplies 1 each 02/07/22 06:00 Iv Access IV 03/08/22 23:59 DIRECTED JERROD Sodium Chloride 0 ml 02/07/22 06:00 Normal Saline Flush 10 Ml Syr IV 03/08/22 23:59 PRN PRN Sodium Chloride 0 ml 02/07/22 06:00 Normal Saline 10 Ml Vial IJ 03/08/22 23:59 DIRECTED PRN Sterile Water 0 ml 02/07/22 06:00 Water,Injection,Sterile 10 Ml Vial IJ 03/08/22 23:59 DIRECTED PRN PFSH Active Problems Active Problems: Problem Status Onset Code Arthritis of carpometacarpal (CMC) joint of right thumb M18.11 Hypertension I10 Encounter for screening colonoscopy Z12.11 Rectal polyp K62.1 S/P colonoscopy with polypectomy Z98.890 Bursitis of right shoulder M75.51 Biceps tendinitis of right shoulder M75.21 Arthritis of right acromioclavicular joint M19.011 Rotator cuff tear, right M75.101 Medical History Medical History Allergic rhinitis Anxiety associated with depression Chronic fatigue Elevated LFTs 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 Non-alcoholic fatty liver disease Prediabetes Sleep disorder sleep apnea Medical History Comments:: Adopted Surgical History Surgical History (Updated 02/07/22 @ 06:18 by Glenys Walker RN) Hx of Achilles tendon repair Tobacco Smoking/Tobacco Use Status: Never Alcohol Alcohol Intake: current Alcohol intake frequency: a few times a week Alcohol type: beer and wine Substance Use Substance use: Never Substance use type: does not use Vital Signs and Lab Results Vital Signs Most Recent Vital Signs in EMR: Most Recent Vital Signs Temp Pulse Resp BP Pulse Ox 36.5 C 49 L 17 124/79 99 02/07/22 06:11 02/07/22 06:11 02/07/22 06:11 02/07/22 06:11 02/07/22 06:11 Lab Results Blood Type / Crossmatch: No Data to Display Complete Blood Count: No Data to Display Complete Metabolic Panel: No Data to Display Liver Function Panel: No Data to Display Coagulation Panel: No Data to Display Cardiac Panel: No Data to Display Arterial Blood Gas: No Data to Display Venous Blood Gas: No Data to Display Pancreas Panel: No Data to Display Thyroid Panel: No Data to Display Infectious Disease: Coronavirus (COVID-19)(PCR) Negative (Negative) 02/05/22 07:58 Coronavirus 2019 Source Nasal/Nares 02/05/22 07:58 Blood Cultures: No Data to Display Toxicology Panel: No Data to Display Panel: No Data to Display Imaging and Studies Imaging and Studies Study information below may be from another EMR and interpreted by another provider. Please see original notes in EMR for more complete details. EKG Summary: Conclusion Sinus rhythm. No st elevation Normal Electrocardiogram Anesthesia Assessment and Plan Anesthesia History Personal History: No History of Anesthesia Complications Family History: No Family History of Anesthesia Complications Exercise Tolerance Exercise Tolerance: Metabolic Equivalents>4 Pertinent Negatives Pertinent Negatives: No Symptoms of GERD, No Major Cardiovascular Symptoms or Complaints, No Major Pulmonary Symptoms or Complaints and No History of CVA/TIA Cardiac & Pulmonary Exam Cardiac Exam: Normal S1/S2 Heart Sounds Pulmonary Exam: Clear Bilateral Breath Sounds Implantable Cardiac Device Does patient have a Pacemaker or an ICD?: No Airway Exam Known Difficult Airway: No Mallampati Class: 3 Mouth Opening: Normal (> 3cm) Thyromental Distance: Greater than 3 cm Neck Range of Motion: Full ROM Neck Circumference: Normal Teeth Condition: Normal Dentition ASA Classification ASA Score: ASA 2 Emergency Case?: No NPO Status NPO Status: NPO Clears >2 hours, Solids >8 hours Status Status: Not Relevant due to Medical History Anesthesia Plan Resuscitation Status: Full Code Anesthesia Technique: General Anesthesia Airway Planned: Endotracheal Tube Pain Management: Surgeon and patient request nerve block Monitors Used: Standard Monitors
[2022-02-07] MEDS: Lactated Ringers 1,000 ML 30 ML IV (06:39)
[2022-02-07] MEDS: ceFAZolin 2 GM/50 ML BAG IVPB (07:45)
--- NOTE | 2022-02-07 08:00 | W.PM.OP ---
Operative Note Operative Note DATE OF PROCEDURE: 02/07/22 PRE-OP DIAGNOSIS: Right: 1. Rotator cuff tear 2. LHB tendinopathy 3. Bursitis 4. AC joint arthritis POST-OP DIAGNOSIS: same PROCEDURE: Right: 1. Rotator cuff repair, CPT# 95840. This involved repair of the subscapularis and supraspinatus using anchors and sutures to reattach the rotator cuff back to the footprint of the lesser and greater tuberosity. 2. Arthroscopic biceps tenodesis, CPT# 06680. This involved arthroscopically suturing and reattaching the long head of the biceps tendon to the proximal humerus at the superior margin of the bicipital groove with a screw at the correct tension. 3. Extensive debridement, CPT# 56855. This involved using arthroscopic hand instruments, power instruments, and radiofrequency instruments to release the long head of the biceps tendon and debride areas of labral tearing, synovitis, and chondromalacia about the biceps groove and greater tuberosity within the glenohumeral joint anteriorly, superiorly and posteriorly. 4. Subacromial decompression with partial acromioplasty, CPT# 43714. This involved using arthroscopic power instruments and a radiofrequency wand to complete a bursectomy and remove bone spurs on the undersurface of the acromion. 5. Arthroscopic distal clavicle excision, CPT# 30082. This involved arthroscopically exposing the underside of the acromioclavicular joint, smoothing out bone spurs, and removing approximately 5 mm of the distal clavicle so there was no bone left engaging the acromion. The cashier assistant was medically required in order to help assist in techniques above, which require positioning the arm, holding the arthroscope, and manipulating multiple instruments and sutures at the same time. This cannot be done without the help of an experienced cashier assistant. SURGEON: Baldomero Joiner COORDINATE MEASURING MACHINE OPERATOR: Coleen Lorenzana ANESTHESIA TYPE: General LMA/ETT and Primary Nerve Block Refer to Anesthesia Record ESTIMATED BLOOD LOSS: 10 PATHOLOGY: none sent COMPLICATIONS: None Patient was transported to: PACU Patient's condition: stable Implants: Arthrex: 4.75mm SwiveLocks x 5 Indications: The patient was diagnosed with the above conditions and appropriately indicated for surgical intervention. Please see complete medical record for details. Findings: Exam under anesthesia: Full range of motion, no instability Glenohumeral joint: Moderate chondromalacia about the lesser tuberosity, bicipital groove, and greater tuberosity. Moderate partial upper margin subscapularis tear. Obvious full-thickness supraspinatus rotator cuff void. Long head biceps partial tearing fraying and degenerative SLAP tear unstable biceps anchor. Subacromial space: Moderate bursitis, moderate impinging distal clavicle acromion, and full-thickness retracted supraspinatus rotator cuff tear. Procedure Description: In the operating room, general anesthesia was induced. Bilateral shoulders were examined. The patient was positioned in the beachchair position. All bony prominences were well-padded. Preoperative antibiotics were administered. The shoulder was prepped and draped in the usual sterile fashion. The correct patient, procedure, and side of the procedure were all verified prior to incision. Starting through the posterior portal a standard complete diagnostic arthroscopy was performed of the glenohumeral joint including inspection of the long head of the biceps, anterior and superior labrum, subscapularis tendon, supraspinatus and infraspinatus tendons, and axillary recess. The glenoid and humeral head cartilage as well as the posterior labrum were inspected from an anterior viewing portal. Significant findings and interventions noted above. Superior anterolateral portal was established through the full-thickness rotator cuff tear. An anterior portal was established as well. The biceps tendon was secured using the loop and tack method around and through the tendon using a FiberLink and the biceps tendon amputated from the superior labrum using arthroscopic scissors. The remainder of the anterior and superior labral tear was debrided to a stable margin using mechanical shaver and radiofrequency ablator. The exposed lesser tuberosity, bicipital groove superior margin, and greater tuberosity were prepared to optimize bone tendon healing using mechanical shaver and hand rasp tools. The biceps was squeezed retracted to the superior margin of the bicipital groove and sutures kept out of the way for subscapularis repair. The subscapularis was secured using the lasso passing a FiberTape about the tear zone. Arm position was neutral and the punch was used to localize placement for combined subscap and biceps repair. The biceps tenodesis sutures were brought out the anterior portal. Both sutures were loaded on the anchor and the anchor deployed majority of the way into the 3 punched hole. There was excellent bone purchase and on one of the final turns of the suture anchor the bio composite head portion of the screw twisted off and removed in entirety with the nuclear security officer handle. The repair sutures were tested vigorously and remainder of the suture anchor and eyelet were well secured unable to demonstrate any motion and was able to lift the humeral head anteriorly and superiorly without any loss of fixation. The double loaded fiber wires also slid normally. 1 of these was removed. The other 1 was used to augment the biceps tendon repair and laid the biceps tendon adjacent to the subscapularis repair to augment the tendon and soft tissue healing. This FiberWire was passed around the free end of the biceps tendon and secured down to the suture anchor using arthroscopic SMC self locking knot. Again the repair security was tested demonstrated no loss of fixation motion or concerns through external rotation or squeezing of the biceps. Starting through the posterior portal, the arthroscope was directed into the subacromial space. A lateral 50 yard line lateral portal was created. A combination of power instruments and a radiofrequency ablator were used to debride bursitis anteriorly, posteriorly, and laterally as well as expose and smooth bone spurring on the undersurface of the acromion. The coracoacromial ligament was partially released. The bursectomy was completed viewing laterally and working from posteriorly and the rotator cuff was thoroughly inspected with findings noted above. The anterior portal was redirected towards the undersurface of the AC joint. A shaver and electrocautery device were used to clear soft tissue from the undersurface of the AC joint. The distalmost 5 mm of the distal clavicle was then removed and smoothed. Care was taken to ensure that proper amount of bone was removed and there was no engaging bone left behind especially superiorly. A posterior superior lateral portal was established. The exposed greater tuberosity centrally and laterally was prepared similarly to optimize bone tendon healing. The tear was larger than the MRI and moderately retracted involving the entire supraspinatus about 2 cm anterior posterior and retracted to the midpoint of the humeral head glenoid. Appropriate mobility was confirmed with the rotator cuff grasper and good tissue quality for double row repair especially centrally and posteriorly with some thinning and fraying more anteriorly and laterally. Through the superior anterior and posterior anchors to medial row 4.75 SwiveLock anchors were placed at the margins of the cartilage and tear loaded with fiber tapes. The 90 degree lasso was used to shuttle these tapes through the appropriate level of the rotator cuff tear medially incorporating all layers of the tear tendon and the cuff grasper used to confirm appropriate reduction and planned tissue coverage laterally. A single FiberTape from the anterior and posterior anchors was brought out laterally. The self retrieving suture passer was used to place a central suture tape FiberLink in cinch mode. The arm was rotated for the lateral anterior anchor which was pretty punched and loaded with these repair sutures and deployed with great fixation and reduction of rotator cuff across the greater tuberosity. The arm was rotated for the posterior lateral anchor and the remaining fiber tapes retrieved from the medial row anchors. The punch was used and an additional SwiveLock anchor placed with the knotless repair mechanism in case a dogear was encountered. The knotless mechanism was then used to secure the repair to the upper margin of the infraspinatus at the junction of the supraspinatus using a self retrieving suture passer and secured and tightened through the SwiveLock anchor mechanism. There was excellent reduction, fixation, and tissue coverage across the greater tuberosity and the rotator cuff repair was stable through testing and range of motion. The shoulder was drained of arthroscopic fluid. All portal sites were copiously irrigated. These incisions were closed using 3-0 Monocryl in a buried fashion and then covered with Mastisol, Steri-Strips, Xeroform, dry gauze, and ABDs. The dressings were covered and secured with Medipore tape. The operative extremity was placed into a sling for immobilization. The patient awoke from anesthesia without complication and was transferred to the recovery room in a stable condition.
--- NOTE | 2022-02-07 08:21 | W.ANESNERVE ---
Nerve Block Single Injection Procedure Date and Time Date Performed: 02/07/22 Procedure Start: 07:16 Location Where Procedure Performed Procedure Location: Day Surgery Unit Reason Performed: Postoperative Analgesia Requesting Provider: Baldomero Joiner Timeout Performed Timeout Performed: Yes Monitoring Used ECG, Blood Pressure, SpO2 and See EMR for corresponding vital signs Sterility Sterility: Hand Hygiene, Surgical Cap, Surgical Mask, Sterile Gloves and Chlorhexidine Sedation Given During Procedure Sedation Given (Indicate Dose Given): Versed IV Dose:: 2mg Patient Mental Status Patient Mental Status: Sedate with meaningful communication Nerve Block 1st Nerve Block: Laterality: Right Block Type: Interscalene Needle / Catheter Used: 120mm SonoPlex II Local Anesthetic Bolus (Indicate Dose Given): Lidocaine used for local infiltration of skin and Bupivacaine 0.375% Dose:: 18 mL Additives (Indicate Dose Given): Precedex Dose:: 36 mcg Ultrasound: Sterile probe cover and gel used Ultrasound Image Saved?: Yes Nerve Stimulator: Not Used Paresthesia: None Procedure Tolerated: No Complications Procedure Outcome: Successful Performed By: Amara Le Supervised By: Silke Otto 2nd Nerve Block: Laterality: Right Block Type: Superficial Cervical Plexus Needle / Catheter Used: 120mm SonoPlex II Local Anesthetic Bolus (Indicate Dose Given): Lidocaine used for local infiltration of skin and Bupivacaine 0.375% Dose:: 7cc Additives (Indicate Dose Given): Precedex Dose:: 14 mcg Ultrasound: Sterile probe cover and gel used Ultrasound Image Saved?: Yes Nerve Stimulator: Not Used Paresthesia: None Procedure Tolerated: No Complications and Patient tolerated well Procedure Outcome: Successful Performed By: Amara Le Supervised By: Silke Otto
[2022-02-07] MEDS: EPINEPHrine 30 MG/30 ML VIAL (09:30)
--- NOTE | 2022-02-07 09:49 | W.PM.DSUDISC ---
Discharge Plan Disposition Patient Disposition: HOME Condition: Stable Discharge Details Reason For Visit: Right shoulder surgery Attending Provider: Baldomero Joiner Primary Care Provider: Rylee Carrera Home Meds and New Rx's Prescriptions: New aspirin 81 mg tablet,delayed release (DR/EC) 81 mg PO DAILY 14 Days Qty: 14 0RF naproxen 250 mg tablet 250 - 500 mg PO BID PRNQty: 40 0RF Rx Instructions: take with a meal oxycodone 5 mg tablet 5 - 10 mg PO Q4H MDD 30 mg PRN (Reason: moderate to severe pain) Qty: 18 0RF Continued naproxen 500 mg tablet 500 mg PO BID chlorthalidone 25 mg tablet 25 mg PO DAILY lisinopril 10 mg tablet 20 mg PO DAILY Contrave 8-90 mg tablet extended release 8 tab PO BID Label Comments: TAKE 1 TABLET BY MOUTH EVERY MORNING FOR 1 WEEK THEN TAKE 1 TABLET BY MOUTH TWICE A DAY FOR 1 WEEK THEN TAKE 2 TABLETS BY MOUTH EVERY MORN Discharge Instructions Additional Instructions: Surgery: Right shoulder arthroscopy with rotator cuff repair (supraspinatus and subscapularis), biceps tenodesis, extensive debridement, distal clavicle excision, and subacromial decompression. Activity: For 6 weeks, you should keep your arm at your side in a neutral position at all times except for physical therapy. Do not try to lift or raise your arm using your own muscles. You should use the sling whenever you are out of the house. You may have to adjust the abduction pillow or remove it for comfort. At home it is best to remove the sling and rest the arm on a pillow at your side or support the operative side with your other hand. You may allow the arm to dangle at your side. A physical therapy prescription will be sent electronically to begin in about 3 weeks. Prescriptions: Aspirin 81 mg take 1 daily to prevent a blood clot for 2 weeks Naproxen 250 mg take 1-2 every 12 hours with a meal as needed for moderate pain Oxycodone 5 mg take 1-2 every 4-6 hours as needed for severe pain You may use [id number] Tylenol (acetaminophen) as needed for mild pain. These pain medications may be taken all at once or in different combinations as needed. Also, recommend Colace (docusate) as a stool softener as surgery and pain medicine cause constipation. You may try [id number] diphenhydramine (Benadryl) 25-50 mg nightly as a sleep aid Dressings: Remove shoulder bandage after 3 days. Leave the sticky Steri-Strips in place until they fall off or remove them after you shower. Cover the incisions with Band-Aids or leave them open to air. You may shower after 5 days. Follow-up: 10-[address] Joiner You may take off the leg compression stockings this evening at home. You may also leave them on a few days longer if you have a history of leg swelling or edema. Let us know right away if you develop any redness, drainage, fevers, chest pain, or trouble breathing. Do not drink alcohol or drive for at least 24 hours after anesthesia. Please call the office during business hours with any questions or concerns. Discharge Orders Discharge Orders: Discharge Order (Routine); Ordered 02/07/22 Ordered By: Baldomero Joiner DS: Diagnosis Discharge Diagnosis (1) Rotator cuff tear, right: Status: Acute (2) Arthritis of right acromioclavicular joint: Status: Acute (3) Biceps tendinitis of right shoulder: Status: Acute (4) Bursitis of right shoulder: Status: Acute
--- NOTE | 2022-02-07 11:07 | W.ANESPOSTOP ---
Postoperative Evaluation Date, Time and Location Date Performed: 02/07/22 Time Performed: 11:07 Patient Location: Day Surgery Unit Vital Signs Most Recent Imported Vital Signs: Most Recent Vital Signs Temp Pulse Resp BP Pulse Ox 36.3 C L 48 L 18 94/54 L 93 02/07/22 10:40 02/07/22 10:40 02/07/22 10:40 02/07/22 10:40 02/07/22 10:40 Pain Score Most Recent Pain Score: Most Recent Pain Score Pain Level 0 02/07/22 07:13 Assessment Mental Status: Awake (Alert & Oriented to Patient Baseline) Airway and Respiratory Function: Patent airway with normal (patient baseline) respiratory exam Cardiovascular Function: Hemodynamically Stable Hydration Status: Adequately Hydrated Nausea & Vomiting: No Nausea or Vomiting Pain: Pt. Denies Any Pain Peripheral Nerve Block: Regional nerve block not resolved at time of post operative discharge
== END 2022-02-07 12:48 | disposition home or self-care (01) ==
PROVIDERS: PCP Naturopath; Visit Provider Student in an Organized Health Care Education/Training Program
PROC: (CPT 29827; principal; 2022-02-07 07:30)
DX: M75.101 Unspecified rotator cuff tear or rupture of right shoulder, not specified as traumatic (principal); M19.011 Primary osteoarthritis, right shoulder; M75.51 Bursitis of right shoulder; M75.21 Bicipital tendinitis, right shoulder
CPT/HCPCS: 29828; 29827; 29826; 29824; 29823; 76942; J0690; J1100; J1885; J2250; J2370; J2405; J2704

== ENCOUNTER 2022-08-23 01:04 | Outpatient (CLI) | payer BC, SELFPAY ==
--- NOTE | 2022-08-23 | DI.MAMMO_ITS ---
Exam(s) MAMMO SCREENING EXAM: MAMMO SCREENING CLINICAL HISTORY: SCREENING, Z12.39. TECHNIQUE: Bilateral full field digital CC and MLO mammographic images were obtained with 3D tomosyn thesis and utilizing computer aided detection (CAD). COMPARISON: Prior mammograms were reviewed. FINDINGS: There has been no significant change in the appearance and distribution of the fibroglandular tissue. There are no new spiculated masses nor malignant appearing microcalcification groups. There is no significant architectural distortion nor skin thickening-retraction. IMPRESSION: No radiographic evidence of malignancy. BI-RADS Category 1 - Negative Breast Density - Category B - Scattered areas of fibroglandular density Breast density Category C or D implies that the patient has dense breast tissue. Dense breast tissue can make it harder to find cancer on a mammogram. Dense breast tissue is also associated with an incr eased risk of breast cancer. This information about the result of the mammogram report was provided to the patient to raise their awareness. Use this report when you speak with the patient about their risks for breast cancer, which includes their family history. At that time, you may recommend additional screening tests (Ultrasoun d or MRI) as these tests may add significant information. A negative radiographic report should not delay biopsy if a dominant or clinically suspicious mass is present. Up to ten percent of cancers are not identified on mammography. A negative report may reinforce clinical impression. Adenosis and dense breasts may obscure an underlying neoplasm. False positive reports average 6 to 10%. Patient will receive a letter notifying them of these results.
== END 2022-08-23 01:24 ==
LOC: DI 01:05
PROVIDERS: PCP Naturopath; Visit Provider Naturopath
DX: Z12.31 Encounter for screening mammogram for malignant neoplasm of breast (principal)
CPT/HCPCS: 77063; 77067

== ENCOUNTER 2022-12-11 14:48 | Outpatient (CLI) | payer BC, SELFPAY ==
--- NOTE | 2022-12-11 15:49 | DI.RAD_ITS ---
Exam(s) XR ABDOMEN FLAT UPRIGHT EXAM: 2D digital imaging was performed. CLINICAL HISTORY: EPIGASTRIC ABD PAIN, R10.13; NAUSEA, R11.0; BLOATING, R14.0;. COMPARISON: No exams were available for comparison TECHNIQUE: Supine and upright views of the abdomen was performed. Three images were obtained. FINDINGS: LUNG BASES: Clear. BOWEL GAS PATTERN: Nondistended. FREE AIR: None. CALCIFICATIONS: No radiopaque calcifications. OSSEOUS STRUCTURES: Normal for age. OTHER FINDINGS: None. IMPRESSION: No evidence of an acute abdomen. DATA REPOSITORY: RADIATION DOSE DELIVERED:
== END 2022-12-11 15:08 ==
LOC: DI 14:55
PROVIDERS: PCP Naturopath; Visit Provider Naturopath
DX: R10.13 Epigastric pain (principal); R11.0 Nausea; R14.0 Abdominal distension (gaseous)
CPT/HCPCS: 74019

== ENCOUNTER 2023-03-13 04:04 | Outpatient (CLI) | payer BC, SELFPAY ==
[2023-03-13 12:24] LABS: Abs Immature Grans 0.01 10^3/uL (0.0-0.06); Absolute Basophil Count 0.02 10^3/uL (0.0-0.2); Absolute Eosinophil Count 0.11 10^3/uL (0.0-0.7); Absolute Monocyte Count 0.34 10^3/uL (0.1-0.8); Absolute Neutrophil Count 3.32 10^3/uL (1.2-6.7); Basophils % 0.4; Eosinophils % 2.1; HCT 40.7 % (36.0-46.0); HGB 14.1 g/dL (11.2-15.7); Immature Grans % 0.2; Lymphocytes % 26.9; MCHC 34.6 % (32.0-36.0); MCV 95 fL (80-95); MPV 9.2 fL (8.0-11.0); Monocytes % 6.5; Neutrophils % 63.9; Platelet Count 193 10^3/uL (130-400); RBC 4.27 10^6/uL (3.93-5.22); RDW 12.2 % (11.7-14.6)
[2023-03-13 12:43] LABS: Hemoglobin A1C 5.6 % (<5.7)
[2023-03-13 13:09] LABS: Iron 48 ug/dL (50-170); Total Iron Binding Capacity 274 ug/dL (250-450); Transferrin Sat 18 % (15-50)
[2023-03-13 13:16] LABS: ALT 30 U/L (14-59); AST 20 U/L (15-37); Albumin 4.4 g/dL (3.4-5.0); Alkaline Phosphatase 52 U/L (46-116); Anion Gap 9.9 mmol/L (3-11); BUN 18 mg/dL (7-18); Bilirubin, Total 0.6 mg/dL (0.2-1.0); CO2 29.1 mmol/L (21.0-32.0); CREATININE 1.1 mg/dL (0.55-1.02); Calcium 9.6 mg/dL (8.5-10.1); Calculated LDL 115 mg/dL (<100); Chloride 96 mmol/L (98-107); Cholesterol 179 mg/dL (<200); Estimated GFR 59.71 (mL/min/1.73m2); Ferritin 404 ng/mL (8-252); Glucose 93 mg/dL (74-106); HDL Cholesterol 45 mg/dL (40-60); Potassium 3.2 mmol/L (3.5-5.1); Sodium 135 mmol/L (136-145); Total Protein 8.5 g/dL (6.4-8.2); Triglyceride 98 mg/dL (<150)
[2023-03-13 18:45] LABS: CRP, High Sensitivity 0.87 mg/L (See Note)
[2023-03-13 19:04] LABS: Estradiol 39 pg/mL (See Note); Progesterone 3.9 ng/mL (See Table)
[2023-03-17 09:01] LABS: Insulin 10.7 uIU/mL (<29.0)
[2023-03-20 12:31] LABS: Testosterone, Free 0.73 ng/dL (<0.13-0.92); Testosterone, Total 74 ng/dL (8-60)
== END 2023-03-13 04:05 | disposition home or self-care (01) ==
LOC: LOS 04:04
PROVIDERS: PCP Naturopath; Visit Provider Naturopath
DX: Z13.220 Encounter for screening for lipoid disorders (principal); Z13.1 Encounter for screening for diabetes mellitus; E78.01 Familial hypercholesterolemia; I10 Essential (primary) hypertension; R79.89 Other specified abnormal findings of blood chemistry; N95.8 Other specified menopausal and perimenopausal disorders
CPT/HCPCS: 36415; 80053; 80061; 84402; 84403; 86141; 82670; 82728; 83036; 83525; 83540; 83550; 84144; 85025

== ENCOUNTER 2023-05-16 01:00 | Outpatient (CLI) | payer BC, SELFPAY ==
[2023-05-19 12:06] LABS: IgA 214 mg/dL (85-499)
[2023-05-19 19:45] LABS: Tissue Transglutaminase Ab IgG 1.7 U/mL
== END 2023-05-16 01:01 | disposition home or self-care (01) ==
PROVIDERS: PCP Naturopath; Visit Provider Internal Medicine Gastroenterology
DX: R10.9 Unspecified abdominal pain (principal)
CPT/HCPCS: 36415; 82784; 86364

== ENCOUNTER 2023-07-29 04:50 | Outpatient (CLI) | payer BC, SELFPAY ==
[2023-07-29 10:44] LABS: Abs Immature Grans 0.01 10^3/uL (0.0-0.06); Absolute Basophil Count 0.04 10^3/uL (0.0-0.2); Absolute Eosinophil Count 0.29 10^3/uL (0.0-0.7); Absolute Lymphocyte Count 1.59 10^3/uL (1.2-3.4); Absolute Monocyte Count 0.27 10^3/uL (0.1-0.8); Absolute Neutrophil Count 2.26 10^3/uL (1.2-6.7); Basophils % 0.9; Eosinophils % 6.5; HCT 41.9 % (36.0-46.0); HGB 14.2 g/dL (11.2-15.7); Immature Grans % 0.2; Lymphocytes % 35.7; MCH 32.6 pg (27.0-33.0); MCHC 33.9 % (32.0-36.0); MCV 96 fL (80-95); MPV 8.7 fL (8.0-11.0); Monocytes % 6.1; Neutrophils % 50.6; Platelet Count 160 10^3/uL (130-400); RBC 4.35 10^6/uL (3.93-5.22); RDW 12.5 % (11.7-14.6); RDW-SD 44.4 fL; WBC 4.46 10^3/uL (4.4-10.8)
[2023-07-29 10:57] LABS: Hemoglobin A1C 5.1 % (<5.7)
[2023-07-29 11:09] LABS: ALT 19 U/L (14-59); AST 18 U/L (15-37); Alkaline Phosphatase 54 U/L (46-116); Anion Gap 5.4 mmol/L (3-11); BUN 9 mg/dL (7-18); Bilirubin, Total 0.7 mg/dL (0.2-1.0); CO2 29.6 mmol/L (21.0-32.0); CREATININE 1.1 mg/dL (0.55-1.02); Calcium 9.3 mg/dL (8.5-10.1); Calculated LDL 112 mg/dL (<100); Chloride 103 mmol/L (98-107); Cholesterol 180 mg/dL (<200); Estimated GFR 59.71 (mL/min/1.73m2); Ferritin 450 ng/mL (8-252); Glucose 92 mg/dL (74-106); HDL Cholesterol 46 mg/dL (40-60); Potassium 3.8 mmol/L (3.5-5.1); Sodium 138 mmol/L (136-145); Total Protein 7.9 g/dL (6.4-8.2); Triglyceride 113 mg/dL (<150)
[2023-07-30 08:23] LABS: Transferrin 198 mg/dL (201-352)
[2023-07-30 10:19] LABS: Insulin 6.8 uIU/mL (<29.0)
== END 2023-07-29 04:51 | disposition home or self-care (01) ==
LOC: LBO 04:50
PROVIDERS: PCP Naturopath; Visit Provider Naturopath
DX: I10 Essential (primary) hypertension (principal); K58.1 Irritable bowel syndrome with constipation; E61.1 Iron deficiency; Z13.220 Encounter for screening for lipoid disorders; Z13.1 Encounter for screening for diabetes mellitus
CPT/HCPCS: 36415; 80053; 80061; 82728; 83036; 83525; 84466; 85025

== ENCOUNTER 2024-02-11 11:40 | Outpatient (CLI) | payer BC, SELFPAY ==
--- NOTE | 2024-02-11 08:15 | DI.RAD_ITS ---
Exam(s) XR SHOULDER LT COMPLETE 2+V EXAM: XR SHOULDER LT COMPLETE 2+V CLINICAL HISTORY: LEFT SHOULDER PAIN. TECHNIQUE: 2D digital imaging was performed of the left shoulder. Two images were obtained. -and a x views were obtained. COMPARISON: No priors for comparison. FINDINGS: BONES: No acute fracture is present. No bony destructive lesion is seen. JOINTS: No dislocation present. The glenohumeral joint is well maintained. There are mild degenerati ve changes seen at the acromioclavicular joint. SOFT TISSUE: Normal. IMPRESSION: Mild degenerative changes of the AC joint. DATA REPOSITORY: RADIATION DOSE DELIVERED:
== END 2024-02-11 11:41 | disposition home or self-care (01) ==
LOC: DIORS 11:41
PROVIDERS: PCP Naturopath; Visit Provider Student in an Organized Health Care Education/Training Program
DX: M25.512 Pain in left shoulder (principal)
CPT/HCPCS: 73030

== ENCOUNTER 2024-03-03 01:58 | Outpatient (CLI) | payer BC, SELFPAY ==
--- NOTE | 2024-03-03 07:30 | DI.MRI_ITS ---
Exam(s) MR UPPER JOINT LT WO EXAM: MR UPPER JOINT LT WO CLINICAL HISTORY: L SHOULDER PAIN,LT ROTATOR CUFF TEAR,M75.102. TECHNIQUE: Multiplanar multisequence MRI was performed. COMPARISON: Plain films 11 February 2024 FINDINGS: BONES: There is no fracture or contusion pattern. Degenerative cyst in the greater tuberosity. JOINTS:The acromioclavicular joint shows mild spurring and a small amount of fluid.. There is edema on both sides and of the joint. The glenohumeral joint is normal. TENDONS: Supraspinatus: Some high signal distally. No focal tear is visible. Infraspinatus: Unremarkable. Subscapularis: Unremarkable. Teres Minor: Unremarkable. Biceps and Gabriels: Unremarkable. MUSCLES: Unremarkable. GLENOID LABRUM: Unremarkable on this noncontrast examination. SOFT TISSUES: Unremarkable. OTHER: Subacromial and subdeltoid bursae shows minimal fluid. No fluid in subcoracoid bursa.. IMPRESSION: Supraspinatus tendonitis. Small amount of fluid in subacromial subdeltoid bursa. Degenerative coffey es of the AC joint. DATA REPOSITORY:
== END 2024-03-03 02:18 ==
PROVIDERS: PCP Naturopath; Visit Provider Student in an Organized Health Care Education/Training Program
DX: M75.21 Bicipital tendinitis, right shoulder (principal)
CPT/HCPCS: 73221

== ENCOUNTER 2024-05-27 10:17 | Day surgery (SDC) | payer BC, SELFPAY ==
[2024-05-27] VITALS (19 sets, daily range): BP systolic 128–155; BP diastolic 83–97; PULSE 60–72; RESP 13–20; TEMP 36.2–36.6; O2SAT 94–100; BMI 24.5
--- NOTE | 2024-05-27 07:18 | ROE_ITS ---
Operative Note Operative Note PRE-OP DIAGNOSIS: Left: 1. Rotator cuff tear 2. LHB tendinopathy 3. Bursitis 4. AC joint arthritis POST-OP DIAGNOSIS: same PROCEDURE: Left: 1. Arthroscopic distal clavicle excision, CPT# 09014. This involved arthroscopically exposing the underside of the acromioclavicular joint, smoothing out bone spurs, and removing a few millimeters of the acromion and distal clavicle so there was no bone left engaging at the joint or impinging on the rotator cuff. 2. Arthroscopic biceps tenodesis, CPT# 64813. This involved arthroscopically suturing and reattaching the long head of the biceps tendon to the proximal humerus at the superior margin of the bicipital groove with a screw at the correct tension. 3. Extensive debridement, CPT# 67294. This involved using arthroscopic hand instruments, power instruments, and radiofrequency instruments to release the long head of the biceps tendon and debride areas of anterior labral tearing, superior SLAP tearing, rotator interval synovitis, and chondromalacia about the central glenoid within the glenohumeral joint anteriorly, superiorly and posteriorly. 4. Subacromial decompression, CPT# 17068. This involved using arthroscopic power instruments and a radiofrequency wand to complete a bursectomy and smooth the undersurface of the acromion. The accounts receivable assistant was medically required in order to help assist in techniques above, which require positioning the arm, holding the arthroscope, and manipulating multiple instruments and sutures at the same time. This cannot be done without the help of an experienced accounts receivable assistant. SURGEON: Baldomero Joiner SURGICAL ENDOSCOPIST: Margarito Leon ANESTHESIA TYPE: Local By Surgeon, General LMA/ETT and Primary Nerve Block Refer to Anesthesia Record ESTIMATED BLOOD LOSS: 5 PATHOLOGY: none sent COMPLICATIONS: None Patient was transported to: PACU Patient's condition: stable Implants: Arthrex: 4.75mm SwiveLocks x 1 Indications: The patient was diagnosed with the above conditions and appropriately indicated for surgical intervention. Please see complete medical record for details. Findings: Exam under anesthesia: Full range of motion no instability Glenohumeral joint: Mild generalized glenohumeral chondromalacia with a few moderate focal glenoid cartilage defects. Moderate rotator interval synovitis, moderate anterior and superior labral fraying. Intact biceps. Intact subscapularis. Moderate thickness relatively small anterior supraspinatus articular sided tear, which did not probe through into the bursal space. Remainder of central to posterior supraspinatus and infraspinatus intact. Subacromial space: Only mild bursitis, no significant subacromial bone spurring except at the AC joint, which was arthritic engaging and impinging. Procedure Description: In the operating room, general anesthesia was induced. Bilateral shoulders were examined. The patient was positioned in the beachchair position. All bony prominences were well-padded. Preoperative antibiotics were administered. The shoulder was prepped and draped in the usual sterile fashion. The correct patient, procedure, and side of the procedure were all verified prior to incision. Starting through the posterior portal a standard complete diagnostic arthroscopy was performed of the glenohumeral joint including inspection of the long head of the biceps, anterior and superior labrum, subscapularis tendon, supraspinatus and infraspinatus tendons, and axillary recess. The glenoid and humeral head cartilage as well as the posterior labrum were inspected from an anterior viewing portal. Significant findings and interventions noted above. An all-arthroscopic suprapectoral biceps tenodesis was performed through an anterior portal using a Loop N Tack method with a SutureTape FiberLink cinched around and through the tendon. The biceps was tenotomized from the labrum and fixated with a suture anchor at the superior margin of the bicipital groove. The extra knotless repair suture was shuttled around the tendon back through the anchor eyelet mechanism for additional fixation and security. The tendon was stable through testing. Starting through the posterior portal, the arthroscope was directed into the subacromial space. A lateral 50 yard line lateral portal was omitted. A combination of power instruments and a radiofrequency ablator were used to debride bursitis anteriorly, posteriorly, and laterally as well as expose and smooth bone spurring on the undersurface of the acromion. The coracoacromial ligament was partially released. The bursectomy was completed viewing laterally and working from posteriorly and the rotator cuff was thoroughly inspected with findings noted above. The anterior portal was redirected towards the undersurface of the AC joint. A shaver and electrocautery device were used to clear soft tissue from the undersurface of the AC joint. The distalmost few millimeters of the distal clavicle and medial and undersurface acromion were then removed and smoothed. Care was taken to ensure that proper amount of bone was removed and there was no engaging bone left behind. The supraspinatus was inspected again, a needle had been placed through the area of most significant articular sided tearing. There was no thinning or defect noted bursal he. Probing did not reveal any poor quality tissue, but the supraspinatus actually was quite healthy and intact on the bursal side. Decision was made to omit any takedown and repair and the size did not indicate need for PASTA repair. The shoulder was drained of arthroscopic fluid. Both portal sites were copiously irrigated. These incisions were closed using 3-0 Monocryl in a buried fashion and then covered with Mastisol, Steri-Strips, Xeroform, dry gauze, and ABDs. The dressings were covered and secured with Medipore tape. The operative extremity was placed into a sling for immobilization. The patient awoke from anesthesia without complication and was transferred to the recovery room in a stable condition. Date of Procedure: 05/27/24
--- NOTE | 2024-05-27 07:19 | W.PM.DSUDISC ---
Date of service: 05/27/24 Discharge Plan Disposition Patient Disposition: Home Condition: Stable Discharge Details Attending Provider: Baldomero Joiner Primary Care Provider: Rylee Carrera Home Meds and New Rx's Prescriptions: New naproxen 250 mg tablet 250 - 500 mg PO BID PRN (Reason: Moderate pain) Qty: 40 0RF oxycodone-acetaminophen [Percocet] 5-325 mg tablet 1 - 2 tab PO Q4H MDD 30 mg PRN (Reason: Moderate to severe pain) Qty: 18 0RF Continued Zepbound 15 mg/0.5 mL pen injector 15 mg subcut QWEEK Zyrtec 10 mg capsule 10 mg PO DAILY PRN Contrave 8-90 mg tablet extended release 8 tab PO BID Patient Comments: TAKE 1 TABLET BY MOUTH EVERY MORNING FOR 1 WEEK THEN TAKE 1 TABLET BY MOUTH TWICE A DAY FOR 1 WEEK THEN TAKE 2 TABLETS BY MOUTH EVERY MORN Discharge Instructions Additional Instructions: Surgery: Left shoulder arthroscopy with extensive debridement, biceps tenodesis, subacromial decompression, and distal clavicle excision; Small partial articular supraspinatus rotator cuff tear and mild glenohumeral chondromalacia. Activity: You should gradually increase range of motion motion and use of your shoulder. You may use your shoulder for all regular activities while protecting biceps repair. Avoid any weighted elbow flexion or resisted supination for 6-8 weeks. No heavy lifting, reaching overhead, or lifting away from body for approximately 2-3 months. You may use the sling whenever you are out of the house for a few weeks. At home it is best to remove the sling and rest the arm on a pillow at your side or support the operative side with your other hand. A physical therapy prescription will be sent electronically to start in about 3 weeks. Prescriptions: Naproxen 250 mg take 1-2 every 12 hours with a meal as needed for moderate pain Oxycodone-acetaminophen 5-325 mg take 1-2 every 4-6 hours as needed for severe pain These pain medications may be taken together or separately. Also, recommend Colace (docusate) as a stool softener as surgery and pain medicine cause constipation. You may try [id number] diphenhydramine (Benadryl) 25-50 mg nightly as a sleep aid Dressings: Remove shoulder bandage after 3 days. Leave the sticky Steri-Strips in place until they fall off or remove them after you shower. Cover the incisions with Band-Aids or leave them open to air. You may shower after 5 days. Follow-up: 10-[address] Joiner You may take off the leg compression stockings this evening at home. You may also leave them on a few days longer if you have a history of leg swelling or edema. Let us know right away if you develop any redness, drainage, fevers, chest pain, or trouble breathing. Do not drink alcohol or drive for at least 24 hours after anesthesia. Please call the office during business hours with any questions or concerns. Stand Alone Forms: Anesthesia Discharge Inst., Sheri.Nerve Block Instructions, Blanche Torres (DSU) Referrals: Baldomero Joiner MD [ [facility] STAFF PHYSICIAN] - 06/08/24 2:15 pm Discharge Orders Discharge Orders: Discharge Order (Routine); Ordered 05/27/24 Ordered By: Margarito Leon DS: Diagnosis Discharge Diagnosis (1) Left rotator cuff tear: Status: Acute
--- NOTE | 2024-05-27 08:53 | W.ANESPRE ---
General Info Date of Service Date Performed: 05/27/24 Height: 5 ft 6 in Weight: 68.946 kg Body Mass Index (BMI): 24.5 Surgical Procedure: Operation Date: 05/27/24 10:55 Proposed Procedure Side Surgeon p Shoulder Rotator Cuff Arthroscopic w/Extensive Debridement, Biceps Tenodesis, Subacromial Decompression, Distal Clavicle Excision Left Baldomero Joiner MD Meds Allergies and Home Medications Allergies Allergy/AdvReac Type Severity Reaction Status Date / Time Penicillins Allergy Unknown Wheezing Verified 05/27/24 10:25 Home Medication ?Medication ?Instructions ?Recorded naltrexone 8 mg-bupropion 90 mg 8 tab PO BID 05/13/20 tablet,extended release (Contrave) cetirizine 10 mg capsule (Zyrtec) 10 mg PO DAILY PRN 05/27/23 tirzepatide (weight loss) 15 15 mg subcut QWEEK 02/11/24 mg/0.5 mL subcutaneous pen injector (Zepbound) naproxen 250 mg tablet 250 - 500 mg (1 - 2 x 250 mg) PO 05/27/24 BID PRN Moderate pain #40 tabs oxycodone-acetaminophen 5 mg-325 1 - 2 tab PO Q4H PRN Moderate to 05/27/24 mg tablet (Percocet) severe pain #18 tabs Current Visit Medications: Current Medications Generic Name Dose Route Start Last Admin Trade Name Freq PRN Reason Stop Dose Admin Cefazolin Sodium/Dextrose 2 gm in 50 mls @ 100 mls/hr 05/27/24 06:00 Ancef Duplex IVPB 05/27/24 23:59 PREOP JERROD Tranexamic Acid/Sodium Chloride 1,000 mg in 100 mls @ 600 mls/hr 05/27/24 06:00 IVPB 05/27/24 23:59 PREOP JERROD IV Miscellaneous Supplies 1 each 05/27/24 06:00 Iv Access IV 05/27/24 23:59 DIRECTED JERROD Oxycodone HCl 0 mg 05/27/24 07:18 Oxycodone 5 Mg Tab PO 06/26/24 07:17 Q3H PRN PRN Pain Sodium Chloride 0 ml 05/27/24 06:00 Normal Saline Flush 10 Ml Syr IV 05/27/24 23:59 PRN PRN Sodium Chloride 0 ml 05/27/24 06:00 Normal Saline 10 Ml Vial IJ 05/27/24 23:59 DIRECTED PRN Sterile Water 0 ml 05/27/24 06:00 Water,Injection,Sterile 10 Ml Vial IJ 05/27/24 23:59 DIRECTED PRN PFSH Active Problems Active Problems: Problem Status Onset Code Left rotator cuff tear Acute ~01/2024 M75.102 Arthritis of carpometacarpal (CMC) joint of right thumb Acute M18.11 Hypertension Chronic I10 Encounter for screening colonoscopy Acute Z12.11 Rectal polyp Acute K62.1 S/P colonoscopy with polypectomy Acute Z98.890 Bursitis of right shoulder Acute M75.51 Biceps tendinitis of right shoulder Acute M75.21 Arthritis of right acromioclavicular joint Acute M19.011 Rotator cuff tear, right Acute M75.101 Medical History Medical History Allergic rhinitis 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 Prediabetes Sleep disorder sleep apnea Elevated LFTs Chronic fatigue Non-alcoholic fatty liver disease Anxiety associated with depression Medical History Comments:: Adopted Surgical History Surgical History Hx of Achilles tendon repair Tobacco Smoking/Tobacco Use Status: Never Alcohol Alcohol Intake: current Alcohol intake frequency: a few times a week Alcohol type: beer and wine Substance Use Substance use: Never Substance use type: does not use Vital Signs and Lab Results Lab Results Blood Type / Crossmatch: No Data to Display Complete Blood Count: No Data to Display Complete Metabolic Panel: No Data to Display Liver Function Panel: No Data to Display Coagulation Panel: No Data to Display Cardiac Panel: No Data to Display Arterial Blood Gas: No Data to Display Venous Blood Gas: No Data to Display Pancreas Panel: No Data to Display Thyroid Panel: No Data to Display Infectious Disease: No Data to Display Blood Cultures: No Data to Display Toxicology Panel: No Data to Display Imaging and Studies Imaging and Studies Study information below may be from another EMR and interpreted by another provider. Please see original notes in EMR for more complete details. EKG Summary: Conclusion Sinus rhythm. No st elevation Normal Electrocardiogram Anesthesia Assessment and Plan Anesthesia History Personal History: No History of Anesthesia Complications Family History: No Family History of Anesthesia Complications Exercise Tolerance Exercise Tolerance: Metabolic Equivalents>4 Cardiac & Pulmonary Exam Cardiac Exam: Normal S1/S2 Heart Sounds Pulmonary Exam: Clear Bilateral Breath Sounds Implantable Cardiac Device Does patient have a Pacemaker or an ICD?: No Airway Exam Known Difficult Airway: No Mallampati Class: 3 Mouth Opening: Normal (> 3cm) Thyromental Distance: Greater than 3 cm Neck Range of Motion: Full ROM Neck Circumference: Normal Teeth Condition: Normal Dentition ASA Classification ASA Score: ASA 2 Emergency Case?: No NPO Status NPO Status: NPO Clears >2 hours, Solids >8 hours Anesthesia Plan Resuscitation Status: Full Code Anesthesia Technique: General Anesthesia Airway Planned: Endotracheal Tube Pain Management: Surgeon and patient request nerve block Monitors Used: Standard Monitors Preoperative Comments:: 53 yo female for shoulder scope. Sig PMHx: HTN (no longer, on no meds), BLANK, anxiety/depression, preDM. never smoker, occ EtOH. EKG: sinus. Previous Anes: - shoulder, prop/dex, phenyl gtt, glide 3 2a, also mac 3 but unable to maintain view, easy mask. ISB with 2 of midaz, 0.375% with 14 mcg of dexmed - 0/10 pain in D/c - trapezial arthroplasty, LMA 4, no issues. block lasted until she got home. - colo, prop, natural airway, no issues.
[2024-05-27] MEDS: Normal Saline 1,000 ML 80 ML IV (10:53)
--- NOTE | 2024-05-27 12:48 | W.ANESNERVE ---
Nerve Block Single Injection Procedure Date and Time Date Performed: 05/27/24 Procedure Start: 12:42 Location Where Procedure Performed Procedure Location: Day Surgery Unit Reason Performed: Postoperative Analgesia Requesting Provider: Baldomero Joiner Timeout Performed Timeout Performed: Yes Monitoring Used ECG, Blood Pressure and SpO2 Sterility Sterility: Hand Hygiene, Surgical Cap, Surgical Mask, Sterile Gloves and Chlorhexidine Sedation Given During Procedure Sedation Given (Indicate Dose Given): Versed IV Dose:: 2 mg Patient Mental Status Patient Mental Status: Sedate with meaningful communication Nerve Block 1st Nerve Block: Laterality: Left Block Type: Interscalene Ultrasound Image Saved?: Yes Needle / Catheter Used: 100mm SonoPlex II Local Anesthetic Bolus (Indicate Dose Given): Lidocaine used for local infiltration of skin, Injected in 3-5ml increments after negative blood aspiration, Bupivacaine 0.5% Dose:: 10 mL and Exparel Dose:: 10 mL Additives (Indicate Dose Given): None Ultrasound: Sterile probe cover and gel used Nerve Stimulator: Supplement to Ultrasound use and No twitch or parasthesia noted < 0.5 mA Paresthesia: None Procedure Tolerated: No Complications Procedure Outcome: Successful Performed By: Cody Nj
[2024-05-27] MEDS: ceFAZolin 2 GM/50 ML BAG IVPB (13:04)
[2024-05-27] MEDS: TRANEXAMIC ACID/SOD. CHL. 1,000 MG/100 ML BAG 600 MG IVPB (13:10)
[2024-05-27] MEDS: Bupivacaine 0.25% Pres-Free W/EPI 30 ML VIAL (13:41)
[2024-05-27] MEDS: EPINEPHrine 10 MG/10 ML ML (14:26)
--- NOTE | 2024-05-27 15:42 | W.ANESPOSTOP ---
Postoperative Evaluation Date, Time and Location Date Performed: 05/27/24 Time Performed: 15:24 Patient Location: PACU Vital Signs Most Recent Imported Vital Signs: Most Recent Vital Signs Temp Pulse Resp BP Pulse Ox 36.4 C L 66 16 128/90 96 05/27/24 14:59 05/27/24 15:11 05/27/24 15:11 05/27/24 15:11 05/27/24 15:11 Pain Score Most Recent Pain Score: Most Recent Pain Score Pain Level 0 05/27/24 12:33 Assessment Mental Status: Awake (Alert & Oriented to Patient Baseline) Airway and Respiratory Function: Patent airway with normal (patient baseline) respiratory exam Cardiovascular Function: Hemodynamically Stable Hydration Status: Adequately Hydrated Nausea & Vomiting: No Nausea or Vomiting Pain: Pain is tolerable per patient (Minimal to no shoulder discomfort. Bilateral inner ear discomfort improving.) Peripheral Nerve Block: Regional nerve block not resolved at time of post operative discharge
== END 2024-05-27 17:09 | disposition home or self-care (01) ==
LOC: SUR 10:17
PROVIDERS: PCP Naturopath; Visit Provider Student in an Organized Health Care Education/Training Program
PROC: (CPT 29827; principal; 2024-05-27 10:45)
DX: M75.102 Unspecified rotator cuff tear or rupture of left shoulder, not specified as traumatic (principal); M19.012 Primary osteoarthritis, left shoulder; M75.22 Bicipital tendinitis, left shoulder; M75.52 Bursitis of left shoulder; G89.18 Other acute postprocedural pain
CPT/HCPCS: 29828; 29824; 29823; 29826; 64415; C9290; J0131; J0665; J0690; J1100; J1805; J2250; J2405; J2704

== ENCOUNTER 2024-06-18 01:57 | Outpatient (CLI) | payer BC, SELFPAY ==
[2024-06-18 09:07] LABS: Abs Immature Grans 0.02 10^3/uL (0.0-0.06); Absolute Basophil Count 0.03 10^3/uL (0.0-0.2); Absolute Eosinophil Count 0.24 10^3/uL (0.0-0.7); Absolute Lymphocyte Count 1.46 10^3/uL (1.2-3.4); Absolute Monocyte Count 0.47 10^3/uL (0.1-0.8); Absolute Neutrophil Count 6.04 10^3/uL (1.2-6.7); Basophils % 0.4 %; Eosinophils % 2.9 %; HCT 42.1 % (36.0-46.0); HGB 14.1 g/dL (11.2-15.7); Immature Grans % 0.2 %; Lymphocytes % 17.7 %; MCH 32.6 pg (27.0-33.0); MCHC 33.5 % (32.0-36.0); MCV 98 fL (80-95); MPV 8.5 fL (8.0-11.0); Monocytes % 5.7 %; Neutrophils % 73.1 %; Platelet Count 180 10^3/uL (130-400); RBC 4.32 10^6/uL (3.93-5.22); RDW 11.9 % (11.7-14.6); RDW-SD 42.8 fL; WBC 8.26 10^3/uL (4.4-10.8)
[2024-06-18 09:38] LABS: ALT 15 U/L (14-59); AST 18 U/L (15-37); Albumin 4.2 g/dL (3.4-5.0); Alkaline Phosphatase 66 U/L (46-116); Anion Gap 5.8 mmol/L (3-11); BUN 18 mg/dL (7-18); Bilirubin, Total 0.54 mg/dL (0.2-1.0); CO2 30.2 mmol/L (21.0-32.0); Calculated LDL 100 mg/dL (<100); Chloride 105 mmol/L (98-107); Cholesterol 176 mg/dL (<200); Estimated GFR 66.53 (mL/min/1.73m2); Ferritin 357 ng/mL (8-252); Glucose 91 mg/dL (74-106); HDL Cholesterol 48 mg/dL (40-60); Sodium 141 mmol/L (136-145); Triglyceride 143 mg/dL (<150)
[2024-06-18 18:03] LABS: Estradiol 27 pg/mL (See Note); Progesterone 4.8 ng/mL (See Table)
[2024-06-21 09:58] LABS: Insulin 5.2 uIU/mL (<29.0)
[2024-06-21 10:28] LABS: Transferrin 172 mg/dL (201-352)
[2024-06-25 12:29] LABS: Testosterone, Free <0.13 ng/dL (<0.13-0.90); Testosterone, Total 11 ng/dL (8-60)
== END 2024-06-18 01:58 | disposition home or self-care (01) ==
PROVIDERS: PCP Naturopath; Visit Provider Naturopath
DX: E61.1 Iron deficiency (principal); I10 Essential (primary) hypertension; K58.1 Irritable bowel syndrome with constipation; Z13.220 Encounter for screening for lipoid disorders; Z13.1 Encounter for screening for diabetes mellitus
CPT/HCPCS: 36415; 80053; 80061; 84402; 84403; 82670; 82728; 83036; 83525; 84144; 84466; 85025

== ENCOUNTER 2024-09-21 00:44 | Outpatient (CLI) | payer BC, SELFPAY ==
--- NOTE | 2024-09-21 | DI.MAMMO_ITS ---
Exam(s) MAMMO SCREENING EXAM: MAMMO SCREENING CLINICAL HISTORY: SCREENING TECHNIQUE: Bilateral full field digital CC and MLO mammographic images were obtained with 3D tomosyn thesis and utilizing computer aided detection (CAD). COMPARISON: Available for comparison. FINDINGS: Masses/Architectural Distortion: There is an ovoid asymmetric density in the medial right breast on t he craniocaudad view 4 cm from the nipple. There are no areas of architectural distortion. Microcalcifications: No suspicious pleomorphic-type are seen. Skin Thickening/Nipple Retraction: None. IMPRESSION: 1. Ovoid asymmetric density in the medial right breast on the craniocaudad view. 2. This area should be further evaluated with a spot compression view. Right breast ultrasound may b e indicated at that time. BI-RADS Category 0 - Incomplete: Need additional imaging evaluation Breast Density - Category B - Scattered areas of fibroglandular density Breast density category C or D implies that the patient has dense breast tissue. Dense breast tissue is very common and is not abnormal but dense breast tissue can make it harder to find cancer on a ma mmogram. Also, dense breast tissue may increase their breast cancer risk. This information about the result of the mammogram report was provided to the patient to raise their awareness. Use this report when you speak with the patient about their risks for breast cancer, which includes their family hist ory. At that time, you may recommend for more screening tests (Ultrasound or MRI) as they might be us eful based on their risk. A negative radiographic report should not delay biopsy if a dominant or clinically suspicious mass is present. Up to ten percent of cancers are not identified on mammography. A negative report may reinforce clinical impression. Adenosis and dense breasts may obscure an underlying neoplasm. False positive reports average 6 to 10%. Patient will receive a letter notifying them of these results.
== END 2024-09-21 01:04 ==
LOC: DI 00:45
PROVIDERS: PCP Naturopath; Visit Provider Naturopath
DX: Z12.31 Encounter for screening mammogram for malignant neoplasm of breast (principal); R92.323 Mammographic fibroglandular density, bilateral breasts
CPT/HCPCS: 77063; 77067

== ENCOUNTER 2024-09-27 01:50 | Outpatient (CLI) | payer BC, SELFPAY ==
--- NOTE | 2024-09-27 | DI.US_ITS ---
Exam(s) MG MAMMO SCREEN CALL BACK UNI US BREAST RT LIMITED EXAM: MG MAMMO SCREEN CALL BACK UNI CLINICAL HISTORY: OVOID ASYMMETRIC DENSITY MEDIAL RT BREAST R92.8 ABNL MAMMO. TECHNIQUE: Craniocaudal spot compression digital Mammography views of the rightbreast with Tomosynt hesis and right breast ultrasound. COMPARISON: 2017 through 21 September 2024 FINDINGS: Mammography/Tomosynthesis: Masses: None seen. No persistent abnormality is seen on the spot compression view. Architectural Distortion: None seen. Microcalcifictions: No suspicious pleomorphic-type are seen. Skin Thickening/Nipple Retraction: None. Right breast US: Echotexture: Normal appearance of the glandular tissue. Shadowing: No suspicious foci. Cyst: None. Solid lesions: None seen. Ductal dilation: None. IMPRESSION: 1. No evidence of malignancy is noted. 2. Unless there is more urgent need, follow-up screening mammography is recommended, as per [place] [employer] guidelines. 3. The findings were discussed with the patient on the date of the examination. BI-RADS Category 1 - Negative Breast Density - Category B - Scattered areas of fibroglandular density A negative radiographic report should not delay biopsy if a dominant or clinically suspicious mass is present. Up to ten percent of cancers are not identified on mammography. A negative report may reinforce clinical impression. Adenosis and dense breasts may obscure an underlying neoplasm. False positive reports average 6 to 10%. Patient will receive a letter notifying them of these results.
== END 2024-09-27 02:10 ==
LOC: DI 01:50
PROVIDERS: PCP Naturopath; Visit Provider Naturopath
DX: Z12.31 Encounter for screening mammogram for malignant neoplasm of breast (principal); R92.8 Other abnormal and inconclusive findings on diagnostic imaging of breast; R92.323 Mammographic fibroglandular density, bilateral breasts
CPT/HCPCS: 76642; 77063; 77067

== ENCOUNTER 2024-12-27 14:19 | Outpatient (CLI) | payer BC, SELFPAY ==
[2024-12-27 10:45] LABS: Abs Immature Grans 0.02 10^3/uL (0.0-0.06); HCT 42.4 % (36.0-46.0); HGB 14.5 g/dL (11.2-15.7); Immature Grans % 0.3 %; MCH 33.8 pg (27.0-33.0); MCHC 34.2 % (32.0-36.0); MCV 99 fL (80-95); MPV 8.6 fL (8.0-11.0); Platelet Count 220 10^3/uL (130-400); RBC 4.29 10^6/uL (3.93-5.22); RDW 12.5 % (11.7-14.6); RDW-SD 45.4 fL; WBC 6.37 10^3/uL (4.4-10.8)
[2024-12-27 11:46] LABS: ALT 22 U/L (14-59); AST 15 U/L (15-37); Albumin 4.2 g/dL (3.4-5.0); Alkaline Phosphatase 53 U/L (46-116); Anion Gap 7.7 mmol/L (3-11); BUN 16 mg/dL (7-18); Bilirubin, Total 0.6 mg/dL (0.2-1.0); CO2 30.3 mmol/L (21.0-32.0); Calcium 9.4 mg/dL (8.5-10.1); Chloride 99 mmol/L (98-107); Estimated GFR 101.44 (mL/min/1.73m2); Glucose 82 mg/dL (74-106); Potassium 3.8 mmol/L (3.5-5.1); Sodium 137 mmol/L (136-145); Total Protein 8.1 g/dL (6.4-8.2)
[2024-12-28 11:45] LABS: Rubella IgG Ab (UVM) Positive (See Note)
[2025-01-07 15:12] LABS: Testosterone, Free <0.13 ng/dL (<0.13-0.90)
== END 2024-12-27 14:20 | disposition home or self-care (01) ==
LOC: LBO 14:19
PROVIDERS: PCP Naturopath; Visit Provider Naturopath
DX: Z13.0 Encounter for screening for diseases of the blood and blood-forming organs and certain disorders involving the immune mechanism (principal); N95.8 Other specified menopausal and perimenopausal disorders
CPT/HCPCS: 36415; 80053; 82627; 84402; 84403; 82626; 82670; 84144; 85025; 86735; 86762; 86765

== ENCOUNTER 2025-02-17 17:07 | Outpatient (REF) | payer BC, SELFPAY ==
[2025-02-18 11:58] LABS: Campylobacter PCR Negative (Negative); Shiga Toxin PCR Negative (Negative); Shigella/Enteroinvasive Ecoli Negative (Negative)
[2025-02-18 14:26] LABS: Helicobacter pylori Ag, Feces Negative (Negative)
== END 2025-02-17 17:08 | disposition home or self-care (01) ==
LOC: LBN 17:07
PROVIDERS: PCP Naturopath; Visit Provider Naturopath
DX: R12 Heartburn (principal); R10.13 Epigastric pain
CPT/HCPCS: 87338; 87505

== ENCOUNTER 2025-03-02 16:53 | Outpatient (CLI) | payer BC, SELFPAY ==
[2025-03-02 16:17] LABS: Abs Immature Grans 0.01 10^3/uL (0.0-0.06); HCT 39.3 % (36.0-46.0); HGB 13.2 g/dL (11.2-15.7); Immature Grans % 0.2 %; MCH 32.8 pg (27.0-33.0); MCHC 33.6 % (32.0-36.0); MCV 98 fL (80-95); MPV 8.6 fL (8.0-11.0); Platelet Count 176 10^3/uL (130-400); RBC 4.03 10^6/uL (3.93-5.22); RDW 11.8 % (11.7-14.6); RDW-SD 42.5 fL; WBC 4.90 10^3/uL (4.4-10.8)
[2025-03-02 17:11] LABS: ALT 17 U/L (14-59); AST 13 U/L (15-37); Albumin 3.8 g/dL (3.4-5.0); Alkaline Phosphatase 52 U/L (46-116); Amylase 49 U/L (25-115); Anion Gap 7.5 mmol/L (3-11); BUN 15 mg/dL (7-18); Bilirubin, Total 0.5 mg/dL (0.2-1.0); CO2 29.5 mmol/L (21.0-32.0); Calcium 8.8 mg/dL (8.5-10.1); Chloride 104 mmol/L (98-107); Estimated GFR 86.42 (mL/min/1.73m2); Glucose 92 mg/dL (74-106); Lipase 72 U/L (<78); Potassium 3.7 mmol/L (3.5-5.1); Sodium 141 mmol/L (136-145); Total Protein 7.2 g/dL (6.4-8.2)
[2025-03-02 18:02] LABS: Vitamin B12 > 2000 pg/mL (193-986)
[2025-03-03 17:29] LABS: CRP, High Sensitivity <0.34 mg/L (See Note)
== END 2025-03-02 16:54 | disposition home or self-care (01) ==
LOC: LBO 16:54
PROVIDERS: PCP Naturopath; Visit Provider Naturopath
DX: R11.0 Nausea (principal); R12 Heartburn; R10.13 Epigastric pain
CPT/HCPCS: 36415; 80053; 83690; 86141; 82150; 82607; 83525; 85025